=== PATIENT | female | born 1930 | race Caucasian/White ===

== ENCOUNTER 2017-11-09 22:03 | Inpatient (IN) | payer MEDICARE, OTHER ==
[~2017-11-09] VITALS: Ht 172.7 cm; Wt 67.4 kg
[2017-11-10] VITALS (8 sets, daily range): BP systolic 111–167; BP diastolic 61–85
[2017-11-10] MEDS ORDERED: ONDANSETRON 4 MG/2 ML (SDV) Z0FRAN IV PRN ×2 (02:00→14:30)
[2017-11-10] MEDS ORDERED: fentaNYL INJECTION 100 MCG/2 ML AMP IV PRN (02:00)
[2017-11-10] MEDS ORDERED: LORazepam INJ 2 MG/ML (ATIVAN) VIAL IV PRN (02:00)
[2017-11-10] MEDS: D5 1/2 NS 1000 ML IV SOLUTION 1,000 ML IV SCH ×2 (02:41→11:33)
[2017-11-10] MEDS ORDERED: LACTATED RINGERS 1,000 ML IV PRN (10:19)
--- NOTE | 2017-11-10 10:21 | HISTORY AND PHYSICAL ---
DATE OF SERVICE: 11/10/2017 CHIEF COMPLAINT: Pain in right wrist, pain in right hip. HISTORY OF PRESENT ILLNESS: This is an 87-year-old female who has some dementia and fell at home, fracturing the right distal radius and the right hip. She was seen at the emergency room at [place]. Closed reduction of the right wrist was carried out and a cast was applied. X-rays showed a fractured right femoral neck. She has brought with her a disk from [place]. I am unable to open it up. She was transferred to [facility] for treatment of the fractures. She denies any other injuries. Her is in the room with her. She sustained the injury when she fell in a parking lot. PAST MEDICAL HISTORY: Dementia, hyperlipidemia, breast cancer, endometrial cancer. PAST SURGICAL HISTORY: She has had a left hip bipolar arthroplasty and then converted to total hip arthroplasty in the past by Dr. Orantes. FAMILY HISTORY: Noncontributory. SOCIAL HISTORY: Denies smoking or alcohol use. She and her live in [place], [place]. She is retired. ALLERGIES: No known drug allergies. HOME MEDICATIONS: Vitamin C, multivitamin, thyroid supplement. REVIEW OF SYSTEMS: CONSTITUTIONAL: Denies fever, chills. HEENT: Denies visual disturbance or loss of consciousness. CARDIOVASCULAR: Denies chest pain, shortness of breath or palpitations. RESPIRATORY: Denies shortness of breath, cough. GASTROINTESTINAL: Denies nausea, vomiting, diarrhea, constipation. NEUROLOGIC: Denies numbness or tingling or motor weakness. MUSCULOSKELETAL: See HPI. PHYSICAL EXAMINATION: VITAL SIGNS: Temperature 98.7, blood pressure 132/80, pulse 106, respirations 18, oxygen saturation 97%. GENERAL: She is alert and awake, slightly confused. HEENT: Normocephalic, atraumatic. Extraocular movements intact. NECK: Nontender. CHEST: Clear to auscultation. HEART: Regular rate and rhythm with a systolic ejection murmur noted. ABDOMEN: Positive bowel sounds, soft and nontender. No masses. EXTREMITIES: Right hip is tender to palpation but shows no deformity. Right wrist is in a short arm cast. She can move the fingers well, has brisk capillary refill in the fingers of the right hand. NEUROLOGIC: No focal deficits. VASCULAR: Good capillary refill noted. X-RAYS: Valgus impacted right femoral neck fracture. Displaced right distal radius fracture which has been reduced and casted LAB STUDIES: She has copies of lab work that was done at [facility]. A CBC shows white count of 6.2, hemoglobin 12.8, hematocrit 38, platelets 260,000. Protime 11.3, INR 1.1. Comprehensive metabolic panel shows a sodium 133, potassium 4.8, chloride 91, CO2 25, calcium 8.9, BUN 18, creatinine 0.66, glucose 106. The PTT is 27.9. DIAGNOSIS: Right femoral neck fracture, right comminuted distal radius and ulnar fracture. PLAN: We will plan on taking her to the operating room today for surgery on the right hip and right wrist. Due to the impacted minimally displaced femoral neck I will do cannulated screws. On the wrist I will do ORIF. The hospitalist has been consulted. Job ID: [id number] DocumentID: [id number] Dictated Date: 11/10/2017 07:31:04 Child Welfare Counselor Date: 11/10/2017 09:03:10 Dictated By: PIPPA TY MD MTDD
[2017-11-10] MEDS ORDERED: [UNRECOGNIZED DRUG - OTHER] PO (10:31)
[2017-11-10] MEDS ORDERED: CALC600T12 PO (10:31)
--- NOTE | 2017-11-10 12:05 | Occ Therapy Progress Note ---
Therapy Progress Note 1110 OT orders received but patient is going to surgery this afternoon for repair of hip and UE fractures. Will follow. RAYNE PARKS OT Nov 10, 2017 12:05
--- NOTE | 2017-11-10 12:40 | Consultation-Hospitalist ---
HPI History of Present Illness: HPI/Chief Complaint The patient is an 87-year-old white female admitted by Dr. Bridges as a direct transfer from the [place] emergency room. Her states that they had been to the store. He states that she gets about independently at home but generally requires him for ambulation when they are out. She has had advanced Alzheimer's disease for 15-20 years. He is not absolutely clear about the fall as he took packages to the car to unload. She apparently attempted to follow him to the car and he believes she tripped over a concrete parking bumper. She received to evaluation at the [place] emergency room where it was determined that she had a right femoral neck fracture and a fracture of the right distal radius. A fiberglass splint was placed on the wrist. She is also known to have had a previous left bipolar hip replacement later revised to a total hip arthroplasty. Her past history was positive for distant breast and endometrial carcinoma. Her medications are a minimum. Her states that she had previously been on drugs for Alzheimer's disease but she showed no particular improvement and he discontinued them Source: family Date Seen 11/10/17 Attending Physician Gregorio Bridges MD PCP No,Local Physician Referring Physician Date of Admission Nov 10, 2017 at 00:15 Home Medications & Allergies Home Medications Reviewed patient Home Medication Reconciliation performed by pharmacy medication reconciliations security alarm technician and/or nursing. Patients Allergies have been reviewed. Allergies Allergies Coded Allergies No Known Drug Allergies (Unverified11/10/17) Past Uaxwmqg-Vluccp-Hnentg Hx Past Med/Social Hx: Reviewed Nursing Past Med/Soc Hx Patient Social History Marrital Status: Alcohol Use: Denies Use Recreational Drug Use: No Smoking Status: Never a Smoker Physical Abuse Screen: No Sexual Abuse: No Recent Foreign Travel: No Contact w/other who traveled: No Recent Hopitalizations: No Recent Infectious Disease Expo: No Seasonal Allergies Seasonal Allergies: No Past Medical History Musculoskeletal: Arthritis History of Blood Disorders: No Review of Systems ROS-Unable to Obtain: Y Constitutional: see HPI Physical Exam Physical Exam Vital Signs Vital Signs - First Documented 11/10/17 00:10 Temp 98.4 Pulse 107 Resp 16 B/P (MAP) 153/81 (105) Pulse Ox 92 O2 Delivery Nasal Cannula O2 Flow Rate 2.00 Capillary Refill : Less Than 3 SecondsLess Than 3 Seconds General Appearance: No Apparent Distress, WD/WN Eyes: Bilateral Eye Normal Inspection HEENT: Normal ENT Inspection Neck: Full Range of Motion Respiratory: Chest Non Tender, Lungs Clear, Normal Breath Sounds, No Accessory Muscle Use, No Respiratory Distress Cardiovascular: Regular Rate, Rhythm, No Edema, No Gallop, No JVD, No Murmur, Normal Peripheral Pulses Gastrointestinal: Normal Bowel Sounds, No Organomegaly, No Pulsatile Mass, Non Tender Comments The right wrist was encased in a fiberglass splint. Results Results/Procedures Labs Patient resulted labs reviewed. Assessment/Plan Assessment and Plan Assess & Plan/Chief Complaint Impression: Right femoral neck fracture. 2.fracture right distal radius. 3.advanced SDAT Note: Other than age there is no real concern as to proceeding with planned surgery. The hospital service will follow with you postoperatively Clinical Quality Measures DVT/VTE Risk/Contraindication: Risk Factor Score Per Nursin RFS Level Per Nursing on Admit: 4+=Very High MIK PEREIRA MD Nov 10, 2017 12:40
[2017-11-10] MEDS ORDERED: BUPIVACAINE 0.25% 30 ML (SENSORCAINE) VIAL ONE (13:10)
[2017-11-10] MEDS ORDERED: DEXAMETHASONE 10 MG/ML (DECADRON) 1 ML VIAL ONE (13:30)
[2017-11-10] MEDS ORDERED: ONDANSETRON 4 MG/2 ML (SDV) Z0FRAN ONE (13:30)
[2017-11-10] MEDS ORDERED: proPOfol 200 MG/20 ML (DIPRIVAN) VIAL IV ONE (13:30)
[2017-11-10] MEDS ORDERED: fentaNYL INJECTION 100 MCG/2 ML AMP ONE (13:31)
[2017-11-10] MEDS ORDERED: LIDOCAINE PF 2% 5 ML (XYLOCAINE) VIAL ONE (13:31)
[2017-11-10] MEDS ORDERED: ceFAZolin 1,000 MG (ANCEF) VIAL ONE (14:03)
[2017-11-10] MEDS: LACTATED RINGERS 1,000 ML IV SCH (14:05)
[2017-11-10] MEDS ORDERED: MILK OF MAGNESIA 400 MG/5 ML 30 ML UDC PO PRN (14:30)
[2017-11-10] MEDS ORDERED: morphine INJ 4 MG/ML 1 ML (VIAL/SYRINGE) IV PRN (14:30)
[2017-11-10] MEDS ORDERED: BISACODYL 5 MG (DULCOLAX) TABLET PO PRN (14:30)
[2017-11-10] MEDS ORDERED: KETOROLAC 15 MG/ML VIAL IM/IV SCH (14:30)
[2017-11-10] MEDS ORDERED: ACETAMINOPHEN 325 MG TABLET/CAPLET (TYLENOL) PO PRN ×2 (14:30→14:45)
[2017-11-10] MEDS ORDERED: oxyCODONE/APAP 5/325MG (PERCOCET 5) TABLET PO PRN (14:30)
--- NOTE | 2017-11-10 14:32 | Physical Therapy Progress Note ---
Therapy Progress Note Patient currently in surgery. PT to evaluate in KEL Bauer PT Nov 10, 2017 14:32
[2017-11-10] MEDS ORDERED: PHENYLEPHRINE 100 MCG/ML 10 ML (ANESTHESIA) SYR ONE (15:04)
--- NOTE | 2017-11-10 15:22 | Diagnostic Imaging Report ---
INDICATION: Hip pinning. COMPARISON: None. FINDINGS: Two intraoperative image intensifier views of the right hip were obtained during ORIF. Images provided show three partially threaded cannulated screws traversing the right femoral head and neck. No large displaced fracture fragments are identified but evaluation is suboptimal given the fluoroscopic modality. Please note, the interpreting radiologist was not present during the procedure. IMPRESSION: Fluoroscopic guidance was provided during right hip surgery. Dictated by: Dictated on workstation # [id number]
[2017-11-10] MEDS ORDERED: morphine INJ 10 MG/ML 1ML (SYR OR VIAL) ONE (15:49)
[2017-11-10] MEDS ORDERED: SEVOFLURANE (ULTANE) 15 ML INHAL SOLN ONE ×4 (16:07)
[2017-11-10] MEDS ORDERED: meTOprolol 5 MG/5 ML (LOPRESSOR) VIAL ONE ×2 (16:18→17:04)
[2017-11-10] MEDS ORDERED: morphine INJ 10 MG/ML 1ML (SYR OR VIAL) IVP PRN (17:00)
[2017-11-10] MEDS ORDERED: ONDANSETRON 4 MG/2 ML (SDV) Z0FRAN IVP PRN (17:00)
--- NOTE | 2017-11-10 17:26 | Diagnostic Imaging Report ---
INDICATION: Right wrist ORIF. EXAM: Fluoroscopy was provided during a right wrist ORIF. FINDINGS: Three seconds of fluoroscopic time was utilized. Images demonstrate a volar plate and numerous screws transfixing the distal radius fracture. Alignment appears to be anatomic. IMPRESSION: Fluoroscopy for right wrist ORIF. Dictated by: Dictated on workstation # [id number]
[2017-11-10] MEDS: SENNOSIDES 8.6 MG (SENOKOT) TAB PO SCH ×2 (21:40→21:51)
[2017-11-10] MEDS: DOCUSATE SODIUM 100 MG (COLACE) CAP PO SCH ×2 (21:40→21:50)
[2017-11-10] MEDS: ceFAZolin 2 GM IV Premixed 50 ML IV SCH (22:15)
[2017-11-11] VITALS: BP 158/81
[2017-11-11] MEDS: KETOROLAC 15 MG/ML VIAL IM/IV SCH ×2 (00:02→05:27)
[2017-11-11] MEDS: LACTATED RINGERS 1,000 ML IV SCH ×2 (01:22→16:20)
--- NOTE | 2017-11-11 01:32 | OPERATIVE REPORT ---
DATE OF SERVICE: 11/10/2017 PREOPERATIVE DIAGNOSES: Valgus impacted right femoral neck fracture, displaced right distal radius and ulnar fracture with previous malunion of distal radius and ulna and ulnar positive variance. POSTOPERATIVE DIAGNOSES: Valgus impacted right femoral neck fracture, displaced right distal radius and ulnar fracture with previous malunion of distal radius and ulna and ulnar positive variance.. PROCEDURE: Cannulated screw fixation, right hip open reduction internal fixation, right distal radius, right distal ulna excision. SURGEON: Pippa Bridges MD ACCOUNTS PAYABLE COORDINATOR: Jf Velazquez PA-C. ACCOUNTS PAYABLE COORDINATOR SURGEON DUTIES: The patient positioning, retraction, wound closure, application of sterile dressings. Use of pest controller assistant surgeon is medically indicated. ANESTHESIA: General. COMPLICATIONS: None. BLOOD LOSS: 100 mL. SPECIMENS: None. IMPLANTS: Synthes 7.3 mm cannulated screws x3 for the right hip. Right Synthes distal radial locking plate and screws. INDICATIONS: This lady has fallen late last night and was transferred here with a right hip fracture and right distal radius ulnar fracture. She comes to the operating room today for fixation of the fractures. PROCEDURE IN DETAIL: After informed consent, the patient transported to the operating room. She was placed under general anesthetic and positioned supine on the operative table. She was positioned on the fracture table with the pubis against perineal post, the left leg in the leg johnson with the right foot in a traction boot. Slight internal rotation was applied to the right lower extremity. C-arm was brought in and the fracture remained impacted. The right hip was prepped with ChloraPrep and draped in sterile fashion. A lateral incision was made over the right hip distal to the greater trochanter and IT band and vastus lateralis were split and elevated from the femur. The first guide pin that was placed into the superior anterior portion of the femoral neck and head, confirmed on the C-arm in the AP and lateral view. Next, the parallel guide was used to place a second pin superior and posterior and then a third pin at central and inferior along the calcar. Placement was confirmed on the C-arm and I was careful not to penetrate the articular surface. The pins were measured. Lateral cortex was drilled with a cannulated drill bit over the guide pins and then the appropriate length 7.3 mm cannulated screws were placed over the pins obtaining good purchase. The pins were pulled out. Hard copy C-arm images were saved to the PAC system confirming satisfactory placement and no penetration of the joint surface. All the screws were parallel. The wound was thoroughly irrigated. The IT band was closed with interrupted #1 Vicryl for subcutaneous tissues and anat on the skin. A sterile dressing was applied. Next, the drapes were removed. An arm board was placed on the right side of the table. A tourniquet was placed on the right arm. The right upper extremity was then prepped with ChloraPrep and draped in sterile fashion. A volar approach to the distal radius was carried out. The skin was incised longitudinally over the distal radius and the FCR sheath was opened. The FCR tendon was retracted. The deep fascia then was opened and then the pronator quadratus was elevated off of the distal radius. It appeared that she had a malunited distal radius fracture. The ulna was also deformed and she had ulnar positive variance. I reduced the distal radius fracture, but it still maintain some degree of decreased radial inclination due to the prominent distal ulna. The distal ulna also was very comminuted and fractured. An incision was made over the distal ulna and the fragments were dissected out and were too small to do any fixation. It was felt that with ulnar positive variance. She would benefit more from a distal ulna excision. The fragments that were removed flushed with the distal radius with a rongeur without difficulty. The distal radius then could be brought into better reduction and a Synthes plate was placed over the volar aspect of the distal radius with 6 locking screws in the distal fragment obtaining good purchase and three 3.5 mm bicortical screws in the proximal fragment obtaining good purchase on the lateral view. The angulation was anatomic on the AP view. There was still some slight loss of radial angle inclination, but this is greatly improved with the distal ulna excision. The wounds were thoroughly irrigated. Hard copy C-arm images were saved to the PAC system with AP and lateral views confirming satisfactory reduction, satisfactory screw length and no penetration of the joint surface. The wound was thoroughly irrigated. The wounds were closed in layers with 0 Vicryl, 2-0 Vicryl and then 3-0 nylon on the skin. A bulky dressing and a short arm splint were applied. The tourniquet was deflated. She then was transported to the recovery room in stable condition. Job ID: [id number] DocumentID: [id number] Dictated Date: 11/10/2017 16:01:33 Mitigation Supervisor Date: 11/11/2017 01:31:59 Dictated By: PIPPA BRIDGES MD MTDD
[2017-11-11 04:45] VITALS: BP 116/60
[2017-11-11] MEDS: ceFAZolin 2 GM IV Premixed 50 ML IV SCH (05:33)
[2017-11-11 06:00] LABS: HEMOGLOBIN 11.5 G/DL (11.5-16.0)
[2017-11-11 08:00] VITALS: BP 113/58
--- NOTE | 2017-11-11 08:14 | Anesthesia-General Post-Op ---
General Significant Intra-Op Events Notes Pt sleeping, nurse reported no anesthesia complications Patient Condition Mental Status/LOC: Same as Preop Cardiovascular: Satisfactory Nausea/Vomiting: Absent Respiratory: Satisfactory Pain: Controlled Complications: Absent Post Op Complications Complications None Follow Up Care/Instructions Patient Instructions None needed. Anesthesia/Patient Condition Patient Condition Patient is doing well, no complaints, stable vital signs, no apparent adverse anesthesia problems. No complications reported per nursing. D/C home per [facility] Criteria: Yes BARBARA MONZON CRNA Nov 11, 2017 08:14
[2017-11-11] MEDS: DOCUSATE SODIUM 100 MG (COLACE) CAP PO SCH ×2 (09:02→20:18)
[2017-11-11] MEDS: SENNOSIDES 8.6 MG (SENOKOT) TAB PO SCH ×2 (09:02→20:18)
[2017-11-11] MEDS: ENOXAPARIN 30 MG/0.3 ML (LOVENOX) SYR SC SCH ×2 (09:03→20:23)
[2017-11-11] MEDS: HYDROcodone/APAP 5 MG/325 MG (LORTAB) TAB PO PRN ×2 (09:05→15:40)
--- NOTE | 2017-11-11 09:30 | Physical Therapy Evaluation ---
PT Evaluation-General Medical Diagnosis Admission Date Nov 10, 2017 at 00:15 Medical Diagnosis: right KATIE Onset Date: Nov 10, 2017 Therapy Diagnosis Therapy Diagnosis: impaired mobility, strength, endurance, pain, ROM Height/Weight Height (Feet): 5 Height (Inches): 8.00 Weight (Pounds): 148 Weight (Ounces): 9.0 Precautions Precautions/Isolations: Fall Prevention, Standard Precautions Weight Bear Status Right Lower Extremity: Right Weight Bearing/Tolerated Left Lower Extremity: Left Full Weight Bearing can weight bear right arm using platform walker Referral Physician: Gregorio Bridges MD Reason for Referral: Evaluation/Treatment Medical History Pertinent Medical History: Dementia Current History fell in parking lot, fx right femoral neck and right distal radius Reviewed History: Yes Social History Home: Multilevel Current Living Status: Spouse Entry Into Home: Stairs With Railing PT Steps Into Home: 13 Prior/Core FIM Prior Level of Function Functional [place] Measure 0=Not Assessed/NA 4=Minimal Assistance 1=Total Assistance 5=Supervision or Setup 2=Maximal Assistance 6=Modified [place] 3=Moderate Assistance 7=Complete [place] Bed Mobility: 7 Transfers (B,C,W/C) (FIM): 7 Gait: 7 PT Evaluation-Current Subjective Patient in bed pre tx, agrees to PT but is very confused, no pain at rest. Pt/Family Goals none stated Objective Patient Orientation: Person, Confused Attachments: Oxygen, IV 5L of O2 nasal canula ROM/Strength ROM Lower Extremities NT Strength Lower Extremities NT due to recent surgery Neuromuscular (Tone, Coordination, Reflexes) NT Sensory Vision: Functional Hearing: Impaired Sensation Right Lower Extremit: Intact Sensation Left Lower Extremity: Intact Sensation Lower Extremities Patient very hard of hearing Transfers Functional [place] Measure 0=Not Assessed/NA 4=Minimal Assistance 1=Total Assistance 5=Supervision or Setup 2=Maximal Assistance 6=Modified [place] 3=Moderate Assistance 7=Complete [place] Transfers (B, C, W/C) (FIM): 3 Scootin Rollin Supine to/from Sit: 3 Sit to/from Stand: 3 bed t/f WC(FIM only if WC use): 2 Patient was able to sit at the edge of the bed with mod assist and stand with mod assist. She could not take any steps because she could not bear any weight on her right leg due to pain. She had to sit back down and a stand pivot transfer was performed to the recliner. Balance Sitting Static: Fair Sitting Dynamic: Fair Standing Static: Poor Standing Dynamic: Poor Treatment Seated exercises were attempted, she was able to perform APx10 but only about 4 LAQ. Confusion impaired her ability to perform exercises and follow directions. Assessment/Needs Patient has impaired mobility, strength, endurance, balance, ROM. Patient is confused and at risk for a fall. She was placed in a recliner post tx with nurse call, phone, tray, all needs met. in the room. Rehab Potential: Guarded PT Short Term Goals Short Term Goals Time Frame: November 18, 2017 Transfers (B,C,W/C) (FIM): 4 Gait (FIM): 1 Gait Distance Comment: 20' Gait Level of Assist: 4 Gait Assistive Device: FWW PT Plan Problem List Problem List: Activity Tolerance, Functional Strength, Safety, Balance, Gait, Transfer, Bed Mobility, ROM Treatment/Plan Treatment Plan: Continue Plan of Care Treatment Plan: Bed Mobility, Education, Functional Activity Hieu, Functional Strength, Gait, Safety, Therapeutic Exercise, Transfers Treatment Duration: November 18, 2017 Frequency: 11 times per week Estimated Hrs Per Day: .25 hour per day (15-30') Patient and/or Family Agrees t: Yes Safety Risks/Education Patient Education: Gait Training, Transfer Techniques, Reviewed Precautions, Correct Positioning, Disease Process, Safety Issues Teaching Recipient: Patient Teaching Methods: Discussion Response to Teaching: Reinforcement Needed Discharge Recommendations Plan Patient will perform bed mobility and transfer training, balance and endurance training, functional strengthening, stair training, gait training, and education , to improve functional mobility and independence at home. Therapy D/C Recommendations: Home w/ Family Support, Senior Living (TCU/NH) Time/GCodes Time In: 0900 Time Out: 919 Total Billed Treatment Time: 20 Total Billed Treatment 1 visit [facility] 20' JOYA EDWARDS PT Nov 11, 2017 09:30
--- NOTE | 2017-11-11 11:37 | Progress Note-Hospitalist ---
Subjective HPI/CC On Admission Date Seen by Provider: Nov 11, 2017 Time Seen by Provider: 11:15 The patient is an 87-year-old white female admitted by Dr. Bridges as a direct transfer from the [place] emergency room. Her states that they had been to the store. He states that she gets about independently at home but generally requires him for ambulation when they are out. She has had advanced Alzheimer's disease for 15-20 years. He is not absolutely clear about the fall as he took packages to the car to unload. She apparently attempted to follow him to the car and he believes she tripped over a concrete parking bumper. She received to evaluation at the [place] emergency room where it was determined that she had a right femoral neck fracture and a fracture of the right distal radius. A fiberglass splint was placed on the wrist. She is also known to have had a previous left bipolar hip replacement later revised to a total hip arthroplasty. Her past history was positive for distant breast and endometrial carcinoma. Her medications are a minimum. Her states that she had previously been on drugs for Alzheimer's disease but she showed no particular improvement and he discontinued them Subjective/Events-last exam Patient doing well but only walk 2 feet Lives with her of 67 years but he reports that he cannot take her home if she is just walking that small amount I have put social work consult in for placement that will be ready for Thursday disposition Is eating and drinking it appears to have underlying dementia that would preclude her for criteria of inpatient rehabilitation Considering her advanced age I doubt that recovery back to baseline will be possible that we'll initiate therapy and continue treatment plan No bowel movement yet but on meds Review of Systems General: Fatigue, Malaise Musculoskeletal: leg pain Objective Exam Vital Signs Vital Signs Date Time Temp Pulse Resp B/P (MAP) Pulse Ox O2 Delivery O2 Flow Rate FiO2 11/11/17 11:57 98.5 77 18 88/46 (60) 93 Nasal Cannula 5.00 Capillary Refill : Less Than 3 SecondsLess Than 3 Seconds General Appearance: No Apparent Distress, WD/WN, Chronically ill, Other ( confused?) HEENT: Normal ENT Inspection Neck: Full Range of Motion, Normal Inspection, Non Tender, Supple Respiratory: Lungs Clear, Normal Breath Sounds Cardiovascular: Regular Rate, Rhythm, No Edema Back: Normal Inspection, No CVA Tenderness, No Vertebral Tenderness Extremity: Normal Capillary Refill, Normal Inspection, Normal Range of Motion, Non Tender, No Calf Tenderness Neurologic/Psychiatric: Alert, Disoriented Skin: Normal Color, Warm/Dry Lymphatic: No Adenopathy Results/Procedures Lab Laboratory Tests 11/11/17 05:37 Patient resulted labs reviewed. Assessment/Plan Assessment and Plan Assess & Plan/Chief Complaint Right hip fracture POD # 1 Dementia Hypothyroidism Plan: Check labs in a.m. Physical therapy Needs custodial at discharge on Thursday Diagnosis/Problems Diagnosis/Problems (1) Hypothyroidism Status: Chronic Qualifiers: Hypothyroidism type: acquired Qualified Codes: E03.9 - Hypothyroidism, unspecified (2) Dementia Status: Chronic Qualifiers: Dementia type: Alzheimer's disease Alzheimer's disease onset: unspecified onset Dementia behavioral disturbance: without behavioral disturbance Qualified Codes: G30.9 - Alzheimer's disease, unspecified; F02.80 - Dementia in other diseases classified elsewhere without behavioral disturbance (3) Hip fracture, right Status: Acute Qualifiers: Encounter type: initial encounter Fracture type: closed Qualified Codes: S72.001A - Fracture of unspecified part of neck of right femur, initial encounter for closed fracture Clinical Quality Measures DVT/VTE Risk/Contraindication: Risk Factor Score Per Nursin RFS Level Per Nursing on Admit: 4+=Very High MILLIE MONTOYA DO Nov 11, 2017 11:37
[2017-11-11 11:57] VITALS: BP 88/46
--- NOTE | 2017-11-11 12:18 | Progress Note (SOAP) ---
Subjective Date Seen by Provider: Nov 11, 2017 Time Seen by Provider: 12:15 Subjective/Events-last exam POD 1 s/p right hip perc pinning and ORIF R wrist. Currently in chair at bedside. She verbalizes no complaints. at bedside as well. Focused Exam Respiratory: No Accessory Muscle Use Cardiovascular: Normal Peripheral Pulses Skin: warm/dry, other (dressing to right hip and right wrist CDI) Objective Exam Vital Signs Date Time Temp Pulse Resp B/P (MAP) Pulse Ox O2 Delivery O2 Flow Rate FiO2 11/11/17 11:57 98.5 77 18 88/46 (60) 93 Nasal Cannula 5.00 11/11/17 09:45 97 Nasal Cannula 5.00 11/11/17 08:00 98.2 90 20 113/58 (76) 94 Nasal Cannula 5.00 11/11/17 04:45 99.2 80 19 116/60 (78) 96 Nasal Cannula 5.00 11/11/17 00:00 97.5 81 20 158/81 (106) 96 Nasal Cannula 5.00 11/10/17 22:00 Nasal Cannula 3.00 11/10/17 20:05 98.1 79 18 167/85 (112) 98 Nasal Cannula 5.00 11/10/17 18:55 Nasal Cannula 5.00 11/10/17 17:28 97.4 84 16 149/73 (98) 90 Nasal Cannula 5.00 I & O 11/11/17 07:00 Intake Total 3538 ml Output Total 710 ml Balance 2828 ml Capillary Refill : Less Than 3 SecondsLess Than 3 Seconds General Appearance: No Apparent Distress Neurologic/Psychiatric: Alert Results Lab Laboratory Tests 11/11/17 05:37: Hemoglobin 11.5, Hematocrit 33L Assessment/Plan Assessment/Plan Assess & Plan/Chief Complaint A: POD 1 s/p ORIF right wrist and perc pinning right hip femoral neck fracture right hip displaced comminuted distal radius and ulna fractures right wrist P: continue current treatment. Clinical Quality Measures DVT/VTE Risk/Contraindication: Risk Factor Score Per Nursin RFS Level Per Nursing on Admit: 4+=Very High DWIGHT WIGGINS APRN Nov 11, 2017 12:18 pm
--- NOTE | 2017-11-11 14:57 | Occupational Therapy Eval ---
OT Evaluation-General/PLF Medical Diagnosis Admission Date Nov 10, 2017 at 00:15 Medical Diagnosis: R hip fx, R radius and ulna fx Onset Date: Nov 10, 2017 Therapy Diagnosis Therapy Diagnosis: dec self care, decr funct mob, decr funct use R hand, decr safety aware Height/Weight Height (Feet): 5 Height (Inches): 8.00 Weight (Pounds): 148 Weight (Ounces): 9.0 Precautions Precautions/Isolations: Fall Prevention, Standard Precautions Safety Interventions: Bed Exit Alarm Weight Bear Status Weight Bearing Restriction: Weight Bearing/Tolerated Location Restriction: R LE OK to use platform walker Referral Physician: Gregorio Bridges MD Referral Reason: Evaluation/Treatment Medical History Pertinent Medical History: Arthritis, Dementia Additional Medical History Breast and endometrial cancer. 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 Current History Fell and broke R hip and R radius/ulna. ORIF R hip and R distal radius and ulna resection on 11-10-17. WBAT. Social History Home: Multilevel Current Living Status: Spouse Entry Into Home: Stairs With Railing Steps Into Home: 13 ADL-Prior Level of Function ADL PLOF Comments Patient's has been her primary caregiver, with dementia for 15-20 years. She is able to generally dress herself but needed initiation cues. She could feed herself with a little setup and brush teeth/comb hair. She was generally able to get herself to the bathroom during the day time but was often incontinent several times at night. She refused to wear a "diaper" but did recently tolerate a pad. She resisted taking a shower, with a goal of doing it once a week. She did not need a device for walking in the home. She likes to do word search puzzles OT Current Status Subjective Pt seen in room, up in recliner, agreeable to OT. present and provided most history. No pain behaviors observed. Appearance Pleasant. very hard of hearing. Able to give name and general birthday information "I was born the end of [birth year]". Mental Status/Objective Patient Orientation: Person Attachments: IV Current Glasses/Contacts: Yes Hand Dominance: Right Upper Extremity ROM Unable to fully assess. AROM R hand limited by splint and edema but by end of tx she was able to flex fingers to touch edges of cast and oppose thumb to little finger Upper Extremity Coordination Impaired R hand Upper Extremity Strength Unable to assess. Functional Edema: Fingers R hand ADL-Treatment ADL-Current Pt's diet had just been advanced. reported that he fed her breakfast and lunch but will encourage her to feed herself this evening. Different types of finger foods suggested. She required mod assist bed mobility this am with PT and mod assist sit to stand. She was unable to bear weight on R LE. Discussed with to bring in some comfortable clothes to use for ADL practice Functional [place] Measure 0=Not Assessed/NA 4=Minimal Assistance 1=Total Assistance 5=Supervision or Setup 2=Maximal Assistance 6=Modified [place] 3=Moderate Assistance 7=Complete IndependenceIRFPAI Quality Coding Scale 6 Independent with activity with or without an assistive device 5 Patient requires set up or clean up by helper. Patient completes activity by themselves 4 Supervision or touching assist (CGA). [place] provide cues , steadying assist 3 The helper provides less than half the effort to complete the activity 2 The helper provides more than half the effort to complete the activity 1 Dependent. The helper does all the effort to complete an activity 7 Patient refused to complete or attempt activity 9 The patient did not perform the activity before the current illness or injury 88 Not attempted due to Medical conditions or safety concerns Other Treatments Pt and education on exercises to increase R hand use. She was able to follow visual cues for making a fist with both hands. She also could follow visual instructions for touching thumb to fingertips, including little finger. Pt provided with pink foam pick up which she was able to squeeze with bilat hands. Discussion with about elevation and exercise to help decrease edema, with his verbal understanding. R hand elevated on pillow while pt up in recliner. Pt was able to grasp a pen and was doing puzzles at end of tx. All needs met. Education OT Patient Education: Exercise program, Purpose of tx/functional activities, Rehab process Teaching Recipient: Patient, Family Teaching Methods: Demonstration, Discussion Response to Teaching: Verbalize Understanding, Return Demonstration, Reinforcement Needed OT Halfway Goals Rate Engineer Goals Time Frame: November 18, 2017 Eating (FIM): 5 Grooming(FIM): 5 Bathing(FIM): 4 Upper Body Dressing(FIM): 5 Lower Body Dressing(FIM): 4 Toileting(FIM): 3 Toilet/Commode Transfer(FIM): 4 Shower Transfer(FIM): 4 Additional Goals: 1-Demonstrate ADL Tasks, 2-Verbalize Understanding, 3- ImproveStrength/Hieu 1=Demonstrate adherence to instructed precautions during ADL tasks. 2=Patient will verbalize/demonstrate understanding of assistive devices/ modifications for ADL. 3=Patient will improve strength/tolerance for activity to enable patient to perform ADL's. OT Education/Plan Problem List/Assessment Assessment: Decreased Safety Aware, Dependent Transfers, Edema (R hand), Impaired Cognition, Impaired Coordination, Impaired Self-Care Skills, Restricted Funct UE ROM (R) Pt would benefit from skilled OT to increase her independence in basic self care , which is limited by decreased weight bearing R LE and decreased functional use R hand after surgery. Discharge Recommendations Plan/Recommendations: Continue POC Therapy D/C Recommendations: Snf (TCU/NH) (OT) Patient/Family Goals was hoping to take her home tomorrow based on her rapid recovery from total hip surgery many years ago Treatment Plan/Plan of Care Treatment,Training & Education: Yes Patient would benefit from OT for education, treatment and training to promote independence in ADL's, mobility, safety and/or upper extremity function for ADL' s. Plan of Care: ADL Retraining, Caregiver Training, Functional Mobility, UE Funct Exercise/Act, UE Neuromus Re-Ed/Coord Treatment Duration: November 18, 2017 Frequency: 5 times per week Estimated Hrs Per Day: .25 hour per day (to .5) Agreement: Yes Rehab Potential: Poor Time/GCodes Start Time: 13:55 Stop Time: 14:30 Total Time Billed (hr/min): 35 Billed Treatment Time visit, 20 minutes evaluation high intensity, 15 minutes exercise RAYNE PARKS OT Nov 11, 2017 14:57
[2017-11-11 15:40] VITALS: BP 116/60
--- NOTE | 2017-11-11 15:50 | Physical Therapy Daily Note ---
PT Daily Note-Current Subjective Patient in recliner pre tx, reluctant to participate but does with therapist and family encouragement. Pain not rated. Appearance Patient in bed post tx with nurse call, phone, tray, bed alarm on. Patient would not let therapist put on her nasal canula, nurse notified. Mental Status Patient Orientation: Person Transfers Functional [place] Measure 0=Not Assessed/NA 4=Minimal Assistance 1=Total Assistance 5=Supervision or Setup 2=Maximal Assistance 6=Modified [place] 3=Moderate Assistance 7=Complete IndependenceIRFPAI Quality Coding Scale 6 Independent with activity with or without an assistive device 5 Patient requires set up or clean up by helper. Patient completes activity by themselves 4 Supervision or touching assist (CGA). [place] provide cues , steadying assist 3 The helper provides less than half the effort to complete the activity 2 The helper provides more than half the effort to complete the activity 1 Dependent. The helper does all the effort to complete an activity 7 Patient refused to complete or attempt activity 9 The patient did not perform the activity before the current illness or injury 88 Not attempted due to Medical conditions or safety concerns Transfers (B, C, W/C) (FIM): 2 Scootin Rollin Supine to/from Sit: 2 Sit to/from Stand: 2 Bed to/from Chair: 2 Patient was max assist for bed mobility and transfers. Patient could not stand with the walker in front of her and a therapist has to supervisor production managing front of her and help her stand with max assist and she took a few steps back to the bed with max cues. Weight Bearing Right Lower Extremity: Right Weight Bearing/Tolerated Left Lower Extremity: Left Full Weight Bearing can weight bear right arm using platform walker Exercises Seated Therapy Exercises: Long arc quads Seated Reps: 10 Treatments bed mobility and transfers, functional strengthening Assessment Current Status: Poor Progress poor mobility, poor motivation PT Short Term Goals Short Term Goals Time Frame: November 18, 2017 Gait (FIM): 1 Gait Distance Comment: 20' Gait Level of Assist: 4 Gait Assistive Device: FWW PT Plan Problem List Problem List: Activity Tolerance, Functional Strength, Safety, Balance, Gait, Transfer, Bed Mobility, ROM Treatment/Plan Treatment Plan: Continue Plan of Care Treatment Plan: Bed Mobility, Education, Functional Activity Hieu, Functional Strength, Gait, Safety, Therapeutic Exercise, Transfers Treatment Duration: November 18, 2017 Frequency: 11 times per week Estimated Hrs Per Day: .25 hour per day (15-30') Patient and/or Family Agrees t: Yes Safety Risks/Education Patient Education: Transfer Techniques, Correct Positioning, Safety Issues Teaching Recipient: Patient Teaching Methods: Demonstration, Discussion Response to Teaching: Reinforcement Needed Time/GCodes Time In: 1525 Time Out: 1535 Total Billed Treatment Time: 10 Total Billed Treatment 1 visit FA 10' JOYA EDWARDS PT Nov 11, 2017 15:50
[2017-11-11 19:15] VITALS: BP 116/73
[2017-11-12] VITALS: BP 118/54
[2017-11-12] MEDS: HYDROcodone/APAP 5 MG/325 MG (LORTAB) TAB PO PRN ×3 (00:17→21:35)
[2017-11-12 04:00] VITALS: BP 96/63
[2017-11-12 05:56] LABS: BASOPHILS % (AUTO) 0 % (0-10); EOSINOPHILS # (AUTO) 0.1 10^3/uL (0.0-0.3); EOSINOPHILS % (AUTO) 3 % (0-10); HEMATOCRIT 33 % (35-52); HEMOGLOBIN 11.3 G/DL (11.5-16.0); LYMPHOCYTES # (AUTO) 0.7 X 10^3 (1.0-4.0); LYMPHOCYTES % (AUTO) 14 % (12-44); MEAN CORPUSCULAR HEMOGLOBIN 34 PG (25-34); MEAN CORPUSCULAR HGB CONC 34 G/DL (32-36); MEAN CORPUSCULAR VOLUME 101 FL (80-99); MONOCYTES # (AUTO) 0.6 X 10^3 (0.0-1.0); MONOCYTES % (AUTO) 12 % (0-12); NEUTROPHILS # (AUTO) 3.5 X 10^3 (1.8-7.8); NEUTROPHILS % (AUTO) 72 % (42-75); PLATELET COUNT 194 10^3/uL (130-400); RED BLOOD COUNT 3.32 10^6/uL (4.35-5.85); RED CELL DISTRIBUTION WIDTH 14.9 % (10.0-14.5); WHITE BLOOD COUNT 4.9 10^3/uL (4.3-11.0)
[2017-11-12 06:15] LABS: ALANINE AMINOTRANSFERASE 11 U/L (0-55); ALBUMIN 3.1 GM/DL (3.2-4.5); ALKALINE PHOSPHATASE 48 U/L (40-136); BILIRUBIN,TOTAL 0.9 MG/DL (0.1-1.0); BUN/CREATININE RATIO 24; CALCIUM 8.2 MG/DL (8.5-10.1); CARBON DIOXIDE 26 MMOL/L (21-32); CHLORIDE 105 MMOL/L (98-107); CREATININE SERUM 0.66 MG/DL (0.60-1.30); GFR ESTIMATED > 60; GLUCOSE 97 MG/DL (70-105); POTASSIUM 3.5 MMOL/L (3.6-5.0); SODIUM 137 MMOL/L (135-145); TOTAL PROTEIN 5.5 GM/DL (6.4-8.2)
[2017-11-12] MEDS: LACTATED RINGERS 1,000 ML IV SCH ×2 (06:32→16:46)
--- NOTE | 2017-11-12 07:50 | Physician Query Clarification ---
PQ-Intro New Diagnosis Admission/Discharge Admission Date: Nov 10, 2017 at 00:15 Discharge Date: Nov 15, 2017 (tentative) The medical record reflects the following clinical scenario: History/Risk Factors: Fall in parking lot Osteoporosis listed on records from [facility] Clinical Findings: Valgus impacted right femoral neck fracture Displaced right distal radius and ulna fractures with previous malunion of distal radius and ulna and ulnar positive variance. Treatment: Surgical treatment Question: What condition best reflects the above clinical scenario? Please document below. 1. Osteoporosis is documented on records from [facility]. Pathological fractures due to osteoporosis. 2. Traumatic fractures of right femoral neck and right distal radius and ulna. 3. Other, with explanation of the clinical findings. 4. Clinically undetermined, no explanation for the clinical findings. PHYSICIAN RESPONSE What condition reflects above: 2 In responding to this query, please exercise your independent professional judgment. The purpose of this communication is to more accurately reflect the complexity of your patients condition. The fact that a question is asked does not imply that any particular answer is desired or expected. Thank you for your timely response to this clarification. Requestors name: Leola Lizama [facility] [place] Phone # ext [phone] or [phone] THIS PHYSICIAN QUERY FORM IS A PERMANENT PART OF THE MEDICAL RECORD LEOLA LIZAMA Nov 12, 2017 07:50 PIPPA TY MD Nov 12, 2017 11:21
[2017-11-12] MEDS: SENNOSIDES 8.6 MG (SENOKOT) TAB PO SCH ×2 (07:56→21:35)
[2017-11-12] MEDS: DOCUSATE SODIUM 100 MG (COLACE) CAP PO SCH ×2 (07:56→21:35)
[2017-11-12] MEDS: ENOXAPARIN 30 MG/0.3 ML (LOVENOX) SYR SC SCH ×2 (07:56→21:35)
--- NOTE | 2017-11-12 07:57 | Physician Query Clarification ---
PQ-Further Specificity Admission/Discharge Admission Date: Nov 10, 2017 at 00:15 Discharge Date: Nov 15, 2017 (tentative) The medical record reflects the following clinical scenario: History/Risk Factors: Fall in parking lot Clinical Findings: Valgus impacted right femoral neck fracture Treatment: Percutaneous pinning Question: Can you further specify Right femoral neck fracture treatment per the clinical indicators above? Please document below. 1. Reduction of displaced femoral neck fracture with percutaneous pinning. 2. Percutaneous pinning of nondisplaced femoral neck fracture. 3. Other, with explanation of the clinical findings. 4. Clinically undetermined, no explanation for the clinical findings. PHYSICIAN RESPONSE Can you specify per above: 2 In responding to this query, please exercise your independent professional judgment. The purpose of this communication is to more accurately reflect the complexity of your patients condition. The fact that a question is asked does not imply that any particular answer is desired or expected. Thank you for your timely response to this clarification. Requestors name: Leola Lizama [facility] Phone # ext [phone] or [phone] THIS PHYSICIAN QUERY FORM IS A PERMANENT PART OF THE MEDICAL RECORD LEOLA LIZAMA Nov 12, 2017 07:57 PIPPA TY MD Nov 12, 2017 11:19
[2017-11-12 08:00] VITALS: BP 138/84
[2017-11-12] MEDS ORDERED: BISACODYL 10 MG SUPP (DULCOLAX) PR NR (10:15)
--- NOTE | 2017-11-12 10:34 | Progress Note-Hospitalist ---
Subjective HPI/CC On Admission Date Seen by Provider: Nov 12, 2017 Time Seen by Provider: 09:40 The patient is an 87-year-old white female admitted by Dr. Bridges as a direct transfer from the [facility] emergency room. Her states that they had been to the store. He states that she gets about independently at home but generally requires him for ambulation when they are out. She has had advanced Alzheimer's disease for 15-20 years. He is not absolutely clear about the fall as he took packages to the car to unload. She apparently attempted to follow him to the car and he believes she tripped over a concrete parking bumper. She received to evaluation at the [facility] emergency room where it was determined that she had a right femoral neck fracture and a fracture of the right distal radius. A fiberglass splint was placed on the wrist. She is also known to have had a previous left bipolar hip replacement later revised to a total hip arthroplasty. Her past history was positive for distant breast and endometrial carcinoma. Her medications are a minimum. Her states that she had previously been on drugs for Alzheimer's disease but she showed no particular improvement and he discontinued them Subjective/Events-last exam Patient doing about the same but very hard of hearing and dementia precludes details at the bedside supportive of nursing facility at discharge for skilled care I spoke with primary care provider Dr. Fournier and he is updated on the plan Likely disposition for tomorrow Labs reviewed No BM so we'll start aggressive treatment for that today Review of Systems General: Fatigue Gastrointestinal: Constipation Objective Exam Vital Signs Vital Signs Date Time Temp Pulse Resp B/P (MAP) Pulse Ox O2 Delivery O2 Flow Rate FiO2 11/12/17 08:00 99.3 91 22 138/84 (102) 90 Nasal Cannula 5.00 Capillary Refill : Less Than 3 SecondsLess Than 3 Seconds General Appearance: No Apparent Distress, WD/WN, Chronically ill Respiratory: Lungs Clear, Normal Breath Sounds Cardiovascular: Regular Rate, Rhythm, No Edema Extremity: Normal Capillary Refill, Normal Inspection, Non Tender, No Calf Tenderness Neurologic/Psychiatric: Alert, Disoriented Skin: Normal Color, Warm/Dry Lymphatic: No Adenopathy Results/Procedures Lab Laboratory Tests 11/12/17 05:42 Patient resulted labs reviewed. Assessment/Plan Assessment and Plan Assess & Plan/Chief Complaint Right hip fracture POD # 2 Dementia Hypothyroidism Constipation Plan: Physical therapy Needs halfway at discharge on Thursday Diagnosis/Problems Diagnosis/Problems (1) Hypothyroidism Status: Chronic Qualifiers: Hypothyroidism type: acquired Qualified Codes: E03.9 - Hypothyroidism, unspecified (2) Dementia Status: Chronic Qualifiers: Dementia type: Alzheimer's disease Alzheimer's disease onset: unspecified onset Dementia behavioral disturbance: without behavioral disturbance Qualified Codes: G30.9 - Alzheimer's disease, unspecified; F02.80 - Dementia in other diseases classified elsewhere without behavioral disturbance (3) Hip fracture, right Status: Acute Qualifiers: Encounter type: initial encounter Fracture type: closed Qualified Codes: S72.001A - Fracture of unspecified part of neck of right femur, initial encounter for closed fracture (4) Constipation Status: Acute Qualifiers: Constipation type: drug induced constipation Qualified Codes: K59.03 - Drug induced constipation Clinical Quality Measures DVT/VTE Risk/Contraindication: Risk Factor Score Per Nursin RFS Level Per Nursing on Admit: 4+=Very High MILLIE MONTOYA DO Nov 12, 2017 10:34
--- NOTE | 2017-11-12 10:59 | Physical Therapy Daily Note ---
PT Daily Note-Current Subjective Patient is up in recliner. Adamantly declined standing activity. Agrees to exercises. Pain Numeric Pain Scale: 5-Moderate Pain Location: Right Location Body Site: Hip Pain Description: Acute Mental Status Patient Orientation: Confused Attachments: Oxygen, IV Transfers Functional [place] Measure 0=Not Assessed/NA 4=Minimal Assistance 1=Total Assistance 5=Supervision or Setup 2=Maximal Assistance 6=Modified [place] 3=Moderate Assistance 7=Complete IndependenceIRFPAI Quality Coding Scale 6 Independent with activity with or without an assistive device 5 Patient requires set up or clean up by helper. Patient completes activity by themselves 4 Supervision or touching assist (CGA). [place] provide cues , steadying assist 3 The helper provides less than half the effort to complete the activity 2 The helper provides more than half the effort to complete the activity 1 Dependent. The helper does all the effort to complete an activity 7 Patient refused to complete or attempt activity 9 The patient did not perform the activity before the current illness or injury 88 Not attempted due to Medical conditions or safety concerns Transfers (B, C, W/C) (FIM): 1 Scootin PT repositioned patient in recliner dependent assist with patient refusing to assist Weight Bearing Right Lower Extremity: Right Weight Bearing/Tolerated Left Lower Extremity: Left Full Weight Bearing can weight bear right arm using platform walker Exercises Seated Therapy Exercises: Ankle pumps, Long arc quads Seated Reps: 25 (AAROM) Assessment Patient requires much encouragement to actively participate with therapy. Difficulty with communication secondary to dementia and [place]. From a PT standpoint, patient would benefit from LTCF for continued care. PT Short Term Goals Short Term Goals Time Frame: November 18, 2017 Gait (FIM): 1 Gait Distance Comment: 20' Gait Level of Assist: 4 Gait Assistive Device: FWW PT Plan Treatment/Plan Treatment Plan: Continue Plan of Care Treatment Plan: Bed Mobility, Education, Functional Activity Hieu, Functional Strength, Gait, Safety, Therapeutic Exercise, Transfers Treatment Duration: November 18, 2017 Frequency: 11 times per week Estimated Hrs Per Day: .25 hour per day (15-30') Patient and/or Family Agrees t: Yes Time/GCodes Time In: 944 Time Out: 958 Total Billed Treatment Time: 14 Total Billed Treatment 1 visit EX 14 min KEL LANDRY PT Nov 12, 2017 10:59
[2017-11-12 12:00] VITALS: BP 108/63
--- NOTE | 2017-11-12 12:40 | Progress Note (SOAP) ---
Subjective Date Seen by Provider: Nov 12, 2017 Time Seen by Provider: 12:38 Subjective/Events-last exam Postop day 2 ORIF right hip and ORIF right wrist Slow to progress with PT. Supposed to go to [facility] in [place] tomorrow Review of Systems General: No Chills, No Night Sweats, No Fatigue, No Malaise HEENT: No Head Aches, No Eye Pain, No Ear Pain, No Dysphasia, No Sinus Congestion, No Post Nasal Drip, No Sore Throat Pulmonary: No Dyspnea, No Cough, No Pleuritic Chest Pain Cardiovascular: No: Chest Pain, Palpitations, Orthopnea, Paroxysmal Noc. Dyspnea, Edema, Lt Headedness Gastrointestinal: No: Nausea, Vomiting, Abdominal Pain, Diarrhea, Constipation , Melena, Hematochezia Genitourinary: No Dysuria, No Frequency, No Incontinence, No Hematuria, No Retention Musculoskeletal: No: other, neck pain, shoulder pain, arm pain, back pain, hand pain, leg pain, foot pain Neurological: No: Weakness, Numbness, Incoordination, Change in speech, Confusion, Seizures, Other Objective Exam Vital Signs Date Time Temp Pulse Resp B/P (MAP) Pulse Ox O2 Delivery O2 Flow Rate FiO2 11/12/17 08:00 99.3 91 22 138/84 (102) 90 Nasal Cannula 5.00 11/12/17 08:00 Nasal Cannula 3.00 11/12/17 04:00 99.2 97 19 96/63 (74) 92 Nasal Cannula 3.00 11/12/17 00:00 99.3 89 18 118/54 (75) 93 Nasal Cannula 3.00 11/11/17 21:30 Nasal Cannula 3.00 11/11/17 19:15 99.2 90 18 116/73 (87) 97 Nasal Cannula 5.00 11/11/17 15:40 99.6 86 18 116/60 (78) 98 Nasal Cannula 5.00 I & O 11/12/17 07:00 Intake Total 2620 ml Output Total 300 ml Balance 2320 ml Capillary Refill : Less Than 3 SecondsLess Than 3 Seconds General Appearance: No Apparent Distress Extremity: Normal Capillary Refill, No Calf Tenderness (Scant bloody drainage from right hip and right wrist. Incisions intact) Neurologic/Psychiatric: Alert, No Motor/Sensory Deficits, Disoriented Skin: Normal Color, Warm/Dry Results Lab Laboratory Tests 11/12/17 05:42: White Blood Count 4.9, Red Blood Count 3.32L, Hemoglobin 11.3L, Hematocrit 33L, Mean Corpuscular Volume 101H, Mean Corpuscular Hemoglobin 34, Mean Corpuscular Hemoglobin Concent 34, Red Cell Distribution Width 14.9H, Platelet Count 194, Mean Platelet Volume 10.0, Neutrophils (%) (Auto) 72, Lymphocytes (%) (Auto) 14 , Monocytes (%) (Auto) 12, Eosinophils (%) (Auto) 3, Basophils (%) (Auto) 0, Neutrophils # (Auto) 3.5, Lymphocytes # (Auto) 0.7L, Monocytes # (Auto) 0.6, Eosinophils # (Auto) 0.1, Basophils # (Auto) 0.0, Sodium Level 137, Potassium Level 3.5L, Chloride Level 105, Carbon Dioxide Level 26, Anion Gap 6, Blood Urea Nitrogen 16, Creatinine 0.66, Estimat Glomerular Filtration Rate > 60, BUN/ Creatinine Ratio 24, Glucose Level 97, Calcium Level 8.2L, Total Bilirubin 0.9, Aspartate Amino Transf (AST/SGOT) 22, Alanine Aminotransferase (ALT/SGPT) 11, Alkaline Phosphatase 48, Total Protein 5.5L, Albumin 3.1L Microbiology 11/10/17 MRSA Screen - Final, Complete MRSA not isolated Assessment/Plan Assessment/Plan Assess & Plan/Chief Complaint Postop ORIF of right femoral neck fracture and ORIF right distal radius fracture -- Continue PT. DC to skilled tomorrow Clinical Quality Measures DVT/VTE Risk/Contraindication: Risk Factor Score Per Nursin RFS Level Per Nursing on Admit: 4+=Very High PIPPA TY MD Nov 12, 2017 12:40
--- NOTE | 2017-11-12 12:45 | Discharge Inst-Surgical ---
Discharge Inst-Surgical Depart Medication/Instructions New, Converted or Re-Newed RX: RX on Chart Final Diagnosis: right femoral neck and distal radius fx Consults/Follow Up Goal/Follow Up Appt.: Follow up with Dr. Bridges in 1 month [facility] ESTIVEN Ruiz [phone] Patient Instructions: Weight bear as tolerated right hip. Weight bear with platform walker on right elbow. Daily dressing changes to right hip and right wrist. Keep splint on the right wrist and replace with dressing changes [place] on right hip and sutures right wrist to be removed in [place] on 11-20-2017 Activity Activity as Tolerated: No No heavy lifting right hand Walking Assistive Device: Walker (with platform for right side) Activity Instructions: Avoid Pulling & Pushing Elevate Extremity: Elevate Above Heart (right hand) Diet Discharge Diet: No Restrictions Diet After 24 Hours: Clear Liquid if Nauseous Symptoms to Report to Physicia: Appetite Changes, Extremity Discoloration, Numbness/Tingling, Swelling Increased, Bleeding Excessive, Pain Increased, Fever Over 101 Degrees F If Any Problems/Questions/Issu: Go to Emergency Room Skin/Wound Care Infection Signs and Symptoms: Increased Redness, Foul Odor of Wound, Increased Drainage, Skin Itchy or Has a Rash, Increased Swelling, Temperature Above 101 F Bathing Instructions: Sponge Operative Area Clean and Dry: Keep Incision Clean/Dry Stitches/Nunu/Dermabond Dis: Care of N[place]u, Care of Stitches PIPPA BRIDGES MD Nov 12, 2017 12:45
[2017-11-12] MEDS ORDERED: ACHD5005 PO (12:49)
--- NOTE | 2017-11-12 14:21 | Occupational Ther Daily Note ---
OT Current Status-Daily Note Subjective Pt seen in room, present, participated in OT. Often refused to move R UE more than a couple of times because "it hurts too much" but she would use it for functional activities such as reaching for her 's hand or doing puzzles in book Appearance Awake, confused Mental Status/Objective Functional [place] Measure 0=Not Assessed/NA 4=Minimal Assistance 1=Total Assistance 5=Supervision or Setup 2=Maximal Assistance 6=Modified [place] 3=Moderate Assistance 7=Complete [place] Other Treatment Pt had difficulty following verbal directions and responded better with following demonstration. She squeezed pink sponge about 10 reps with L hand but only about 5 with R. Raised arms up over head for several reps before stopping. Also able to touch shoulders with hands several times. Dressing had been changed and did not look too tight. reported that she had fed herself about 90% of lunch, using R hand. Nursing reported that they had been standing pt to toilet, placing bedpan in chair, but said that she had not been helping with the standing as far as he could see. Pt anticipating discharge to [facility] tomorrow for continued rehab. Pt left up in recliner, R arm elevated on pillow, all needs met. Education OT Patient Education: Exercise program, Progress toward Goal/Update tx plan, Purpose of tx/functional activities Teaching Recipient: Patient Teaching Methods: Demonstration, Discussion Response to Teaching: Verbalize Understanding, Return Demonstration, Reinforcement Needed OT Short Term Goals Short Term Goals 1=Demonstrate adherence to instructed precautions during ADL tasks. 2=Patient will verbalize/demonstrate understanding of assistive devices/ modifications for ADL. 3=Patient will improve strength/tolerance for activity to enable patient to perform ADL's. OT Intermediate Goals Smoking Pipe Maker Goals Time Frame: November 18, 2017 Eating (FIM): 5 Grooming(FIM): 5 Bathing(FIM): 4 Upper Body Dressing(FIM): 5 Lower Body Dressing(FIM): 4 Toileting(FIM): 3 Toilet/Commode Transfer(FIM): 4 Shower Transfer(FIM): 4 Additional Goals: 1-Demonstrate ADL Tasks, 2-Verbalize Understanding, 3- ImproveStrength/Hieu 1=Demonstrate adherence to instructed precautions during ADL tasks. 2=Patient will verbalize/demonstrate understanding of assistive devices/ modifications for ADL. 3=Patient will improve strength/tolerance for activity to enable patient to perform ADL's. OT Education/Plan Problem List/Assessment Pt would benefit from skilled OT to increase her independence in basic self care , which is limited by decreased weight bearing R LE and decreased functional use R hand after surgery. Discharge Recommendations Plan/Recommendations: Continue POC Treatment Plan/Plan of Care Patient would benefit from OT for education, treatment and training to promote independence in ADL's, mobility, safety and/or upper extremity function for ADL' s. Plan of Care: ADL Retraining, Caregiver Training, Functional Mobility, UE Funct Exercise/Act, UE Neuromus Re-Ed/Coord Treatment Duration: November 18, 2017 Frequency: 5 times per week Estimated Hrs Per Day: .25 hour per day (to .5) Agreement: Yes Rehab Potential: Poor Time/GCodes Start Time: 13:36 Stop Time: 13:50 Total Time Billed (hr/min): 14 Billed Treatment Time visit, 14 minutes exercise RAYNE PARKS OT Nov 12, 2017 14:21
--- NOTE | 2017-11-12 14:22 | Physical Therapy Daily Note ---
PT Daily Note-Current Subjective Patient remains up in recliner and declined back to bed. Pain Numeric Pain Scale: 5-Moderate Pain Location: Right Location Body Site: Hip Comment: FLACC Mental Status Patient Orientation: Confused Transfers Functional [place] Measure 0=Not Assessed/NA 4=Minimal Assistance 1=Total Assistance 5=Supervision or Setup 2=Maximal Assistance 6=Modified [place] 3=Moderate Assistance 7=Complete IndependenceIRFPAI Quality Coding Scale 6 Independent with activity with or without an assistive device 5 Patient requires set up or clean up by helper. Patient completes activity by themselves 4 Supervision or touching assist (CGA). [place] provide cues , steadying assist 3 The helper provides less than half the effort to complete the activity 2 The helper provides more than half the effort to complete the activity 1 Dependent. The helper does all the effort to complete an activity 7 Patient refused to complete or attempt activity 9 The patient did not perform the activity before the current illness or injury 88 Not attempted due to Medical conditions or safety concerns Weight Bearing Right Lower Extremity: Right Weight Bearing/Tolerated Left Lower Extremity: Left Full Weight Bearing can weight bear right arm using platform walker Exercises Supine Ex: Ankle pumps, Heel Slides Supine Reps: 15 Seated Therapy Exercises: Ankle pumps, Long arc quads Seated Reps: 15 Assessment Patient is pleasantly confused, however, did "dismiss" PT from performing exercises. Spouse present. Patient will transfer to [place] in a.m. PT Short Term Goals Short Term Goals Time Frame: November 18, 2017 Gait (FIM): 1 Gait Distance Comment: 20' Gait Level of Assist: 4 Gait Assistive Device: FWW PT Plan Treatment/Plan Treatment Plan: Continue Plan of Care Treatment Plan: Bed Mobility, Education, Functional Activity Hieu, Functional Strength, Gait, Safety, Therapeutic Exercise, Transfers Treatment Duration: November 18, 2017 Frequency: 11 times per week Estimated Hrs Per Day: .25 hour per day (15-30') Patient and/or Family Agrees t: Yes Time/GCodes Time In: 1350 Time Out: 1400 Total Billed Treatment Time: 10 Total Billed Treatment 1 visit EX 10 min KEL LANDRY PT Nov 12, 2017 14:22
[2017-11-12 16:00] VITALS: BP 128/62
[2017-11-12] MEDS ORDERED: BISACODYL 10 MG SUPP (DULCOLAX) ONE (18:08)
[2017-11-12 20:00] VITALS: BP 143/68
[2017-11-13] VITALS: BP 146/71
[2017-11-13] MEDS: HYDROcodone/APAP 5 MG/325 MG (LORTAB) TAB PO PRN ×2 (03:58→09:06)
[2017-11-13 04:00] VITALS: BP 155/69
[2017-11-13 06:12] LABS: BASOPHILS % (AUTO) 1 % (0-10); EOSINOPHILS # (AUTO) 0.1 10^3/uL (0.0-0.3); EOSINOPHILS % (AUTO) 2 % (0-10); HEMATOCRIT 31 % (35-52); HEMOGLOBIN 10.4 G/DL (11.5-16.0); LYMPHOCYTES # (AUTO) 0.5 X 10^3 (1.0-4.0); LYMPHOCYTES % (AUTO) 12 % (12-44); MEAN CORPUSCULAR HEMOGLOBIN 34 PG (25-34); MEAN CORPUSCULAR HGB CONC 34 G/DL (32-36); MEAN CORPUSCULAR VOLUME 100 FL (80-99); MEAN PLATELET VOLUME 10.2 FL (7.4-10.4); MONOCYTES # (AUTO) 0.5 X 10^3 (0.0-1.0); MONOCYTES % (AUTO) 11 % (0-12); NEUTROPHILS # (AUTO) 3.2 X 10^3 (1.8-7.8); NEUTROPHILS % (AUTO) 74 % (42-75); PLATELET COUNT 203 10^3/uL (130-400); RED BLOOD COUNT 3.06 10^6/uL (4.35-5.85); RED CELL DISTRIBUTION WIDTH 14.6 % (10.0-14.5); WHITE BLOOD COUNT 4.3 10^3/uL (4.3-11.0)
[2017-11-13 06:32] LABS: ALANINE AMINOTRANSFERASE 10 U/L (0-55); ALBUMIN 2.8 GM/DL (3.2-4.5); ALKALINE PHOSPHATASE 47 U/L (40-136); BILIRUBIN,TOTAL 0.7 MG/DL (0.1-1.0); BUN/CREATININE RATIO 23; CALCIUM 7.9 MG/DL (8.5-10.1); CARBON DIOXIDE 26 MMOL/L (21-32); CHLORIDE 105 MMOL/L (98-107); CREATININE SERUM 0.56 MG/DL (0.60-1.30); GFR ESTIMATED > 60; GLUCOSE 101 MG/DL (70-105); POTASSIUM 3.2 MMOL/L (3.6-5.0); SODIUM 138 MMOL/L (135-145); TOTAL PROTEIN 4.6 GM/DL (6.4-8.2)
[2017-11-13 08:00] VITALS: BP 147/68
[2017-11-13] MEDS: ENOXAPARIN 30 MG/0.3 ML (LOVENOX) SYR SC SCH (09:05)
[2017-11-13] MEDS: DOCUSATE SODIUM 100 MG (COLACE) CAP PO SCH (09:06)
[2017-11-13] MEDS: SENNOSIDES 8.6 MG (SENOKOT) TAB PO SCH (09:06)
[2017-11-13] MEDS ORDERED: ENOX30DI4 SC (10:28)
[2017-11-13] MEDS ORDERED: DOCU-143 PO (10:29)
[2017-11-13] MEDS ORDERED: KCL 20 MEQ TAB (K-DUR) PO NR (10:30)
--- NOTE | 2017-11-13 10:32 | Discharge Summary-Hospitalist ---
Diagnosis/Chief Complaint Date of Admission Nov 10, 2017 at 00:15 Date of Discharge Discharge Date: Nov 13, 2017 Discharge Diagnosis Right hip fracture POD # 3 Dementia Hypothyroidism Constipation resolved Plan: Physical therapy Needs fci at discharge on Thursday (1) Hypothyroidism Status: Chronic (2) Dementia Status: Chronic (3) Hip fracture, right Status: Acute (4) Constipation Status: Resolved Discharge Summary Discharge Physical Exam Allergies: Coded Allergies: No Known Drug Allergies (Unverified , 11/10/17) Vitals & I&Os Vital Signs Date Time Temp Pulse Resp B/P (MAP) Pulse Ox O2 Delivery O2 Flow Rate FiO2 11/13/17 09:00 Nasal Cannula 3.00 11/13/17 08:00 97.8 82 20 147/68 (94) 94 General Appearance: Alert, Cooperative, Other (demented severe) Respiratory: Clear to Auscultation Cardiovascular: Regular Rate Hospital Course Hospital course: Patient had an uneventful hospital course she was admitted with a hip fracture from [place] after a fall she had an uncomplicated repair by orthopedic surgery and had no complications postoperatively except for mild hypokalemia and mild postop constipation that the constipation resolved at time of discharge and the potassium was still low at time of discharge because she refused to take the potassium. Overall patient's prognosis very poor considering the severe dementia and Dr. Fournier her primary care provider was updated on the plan and he agreed. Labs (last 24 hrs) Laboratory Tests 11/13/17 05:45: White Blood Count 4.3, Red Blood Count 3.06L, Hemoglobin 10.4L, Hematocrit 31L, Mean Corpuscular Volume 100H, Mean Corpuscular Hemoglobin 34, Mean Corpuscular Hemoglobin Concent 34, Red Cell Distribution Width 14.6H, Platelet Count 203, Mean Platelet Volume 10.2, Neutrophils (%) (Auto) 74, Lymphocytes (%) (Auto) 12 , Monocytes (%) (Auto) 11, Eosinophils (%) (Auto) 2, Basophils (%) (Auto) 1, Neutrophils # (Auto) 3.2, Lymphocytes # (Auto) 0.5L, Monocytes # (Auto) 0.5, Eosinophils # (Auto) 0.1, Basophils # (Auto) 0.0, Sodium Level 138, Potassium Level 3.2L, Chloride Level 105, Carbon Dioxide Level 26, Anion Gap 7, Blood Urea Nitrogen 13, Creatinine 0.56L, Estimat Glomerular Filtration Rate > 60, BUN /Creatinine Ratio 23, Glucose Level 101, Calcium Level 7.9L, Total Bilirubin 0.7 , Aspartate Amino Transf (AST/SGOT) 22, Alanine Aminotransferase (ALT/SGPT) 10, Alkaline Phosphatase 47, Total Protein 4.6L, Albumin 2.8L Microbiology 11/10/17 MRSA Screen - Final, Complete MRSA not isolated Patient resulted labs reviewed. Pending Labs Laboratory Tests 11/13/17 05:45: White Blood Count 4.3, Red Blood Count 3.06, Hemoglobin 10.4, Hematocrit 31, Mean Corpuscular Volume 100, Mean Corpuscular Hemoglobin 34, Mean Corpuscular Hemoglobin Concent 34, Red Cell Distribution Width 14.6, Platelet Count 203, Mean Platelet Volume 10.2, Neutrophils (%) (Auto) 74, Lymphocytes (%) (Auto) 12 , Monocytes (%) (Auto) 11, Eosinophils (%) (Auto) 2, Basophils (%) (Auto) 1, Neutrophils # (Auto) 3.2, Lymphocytes # (Auto) 0.5, Monocytes # (Auto) 0.5, Eosinophils # (Auto) 0.1, Basophils # (Auto) 0.0, Sodium Level 138, Potassium Level 3.2, Chloride Level 105, Carbon Dioxide Level 26, Anion Gap 7, Blood Urea Nitrogen 13, Creatinine 0.56, Estimat Glomerular Filtration Rate > 60, BUN/ Creatinine Ratio 23, Glucose Level 101, Calcium Level 7.9, Total Bilirubin 0.7, Aspartate Amino Transf (AST/SGOT) 22, Alanine Aminotransferase (ALT/SGPT) 10, Alkaline Phosphatase 47, Total Protein 4.6, Albumin 2.8 Discussion & Recommendations Discharge Planning: <30 minutes discharge planning Discharge Home Medications: Active Scripts Active Colace (Docusate Sodium) 100 Mg Capsule 100 Mg PO BID 30 Days Enoxaparin Sodium 30 Mg/0.3 Ml Syringe 30 Mg SC BID@08,20 14 Days Hydrocodone/Acetaminophen 5/325mg Tablet (Acetaminophen/Hydrocodone Bitart) 1 Tab Tab 1-2 Tab PO Q4H PRN Reported Calcium (Calcium Carbonate) 600 Mg Tablet 600 Mg PO DAILY [Thyroid Tissue 130MG] 65 Mg PO DAILY TAKES 1/2 (130MG) TABLET Instructions to patient/family Please see electronic discharge instructions given to patient. Clinical Quality Measures DVT/VTE Risk/Contraindication: Risk Factor Score Per Nursin RFS Level Per Nursing on Admit: 4+=Very High Problem Qualifiers (1) Hypothyroidism: Hypothyroidism type: acquired Qualified Codes: E03.9 - Hypothyroidism, unspecified (2) Dementia: Dementia type: Alzheimer's disease Alzheimer's disease onset: unspecified onset Dementia behavioral disturbance: without behavioral disturbance Qualified Codes: G30.9 - Alzheimer's disease, unspecified; F02.80 - Dementia in other diseases classified elsewhere without behavioral disturbance (3) Hip fracture, right: Encounter type: initial encounter Fracture type: closed Qualified Codes: S72.001A - Fracture of unspecified part of neck of right femur, initial encounter for closed fracture (4) Constipation: Constipation type: drug induced constipation Qualified Codes: K59.03 - Drug induced constipation MILLIE MONTOYA DO Nov 13, 2017 10:32
--- NOTE | 2017-11-13 10:32 | Discharge Inst-Skilled Nursing ---
Discharge Inst-Skilled NF Patient Instructions Patient Problems: Hip fracture Dementia Hypothyroidism Hypokalemia Consult/Follow Up/Orders Follow Up Appt.: Dr Fournier in 1 week Skilled NF Admit to: [facility] Certification (SNF) I certify that SNF services are required to be given on an inpatient basis because of the above named patient's need for nursing home care on a continuing basis for the conditions(s) for which he/she was receiving inpatient hospital services prior to his/her transfer to the SNF. Long-Term Facility Order: Nursing Services, Digital Computer Operator-Evaluate & Treat, Physical Therapy-Evaluate & Treat, Speech Language-Evaluate & Treat Discharge Diet: No Restrictions Daily Activity as Tolerated: Yes New & Resume Previous Orders Josefa Escobedo Nov 13, 2017 10:29 Pneu Vac Indicated: Yes JOSEFA ESCOBEDO DO Nov 13, 2017 10:31
== END 2017-11-13 12:30 | DRG 481 ==
LOC: 4TH 11-10 00:15
PROVIDERS: ADMIT Orthopaedic Surgery; ATTEND Orthopaedic Surgery
PROC: 0PBK0ZZ Excision of Right Ulna, Open Approach (ICD-10-PCS; 2017-11-10)
PROC: 0QH634Z Insertion of Internal Fixation Device into Right Upper Femur, Percutaneous Approach (ICD-10-PCS; principal; 2017-11-10 14:10)
PROC: 0RSN04Z Reposition Right Wrist Joint with Internal Fixation Device, Open Approach (ICD-10-PCS; 2017-11-10 14:10)
DX: S72.001A Fracture of unspecified part of neck of right femur, initial encounter for closed fracture (principal); S52.501A Unspecified fracture of the lower end of right radius, initial encounter for closed fracture; S52.601A Unspecified fracture of lower end of right ulna, initial encounter for closed fracture; E78.5 Hyperlipidemia, unspecified; G30.9 Alzheimer's disease, unspecified; F02.80 Dementia in other diseases classified elsewhere, unspecified severity, without behavioral disturbance, psychotic disturbance, mood disturbance, and anxiety; E03.9 Hypothyroidism, unspecified; M19.91 Primary osteoarthritis, unspecified site; K59.03 Drug induced constipation; T40.2X5A Adverse effect of other opioids, initial encounter; W18.09XA Striking against other object with subsequent fall, initial encounter; Y92.481 Parking lot as the place of occurrence of the external cause; Z85.3 Personal history of malignant neoplasm of breast; Z85.42 Personal history of malignant neoplasm of other parts of uterus; Z96.642 Presence of left artificial hip joint
CPT/HCPCS: 36415; 80053; 85014; 85018; 85025; 87081; 94664; 94760

== ENCOUNTER 2017-12-25 14:08 | Emergency (ER) | payer MEDICARE ==
[~2017-12-25] VITALS: Ht 165.1 cm; Wt 65.8 kg
[~2017-12-25 14:08] MED LIST: ACHD5005 PO; CALC600T12 PO; DOCU-143 PO; ENOX30DI4 SC; [UNRECOGNIZED DRUG - OTHER] PO
--- NOTE | 2017-12-25 16:10 | ED Upper Extremity ---
General Chief Complaint: Upper Extremity Stated Complaint: LT WRIST INJ Nursing Triage Note: REPORTS THAT PT C/O PAIN TO LEFT THUMB STARTING ABOUT 2 DAYS AGO, AND THIS AM NOTICED THE REDNESS, WARMTH, SWOLLEN LEFT WRIST. REPORTS PT HAVING HISTORY OF ARTHRITIS BUT DENIES GOUT. 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 Nursing Sepsis Screen: No Definite Risk Source: patient Exam Limitations: no limitations History of Present Illness Date Seen by Provider: Dec 25, 2017 Time Seen by Provider: 16:06 Initial Comments To ER with c/o left wrist swelling and redness with of unknown cause x2 days. She is severely demented and contribute to HPI. Onset: this evening Severity: moderate Pain/Injury Location: right wrist Modifying Factors: Worse With Movement Allergies and Home Medications Allergies Coded Allergies: No Known Drug Allergies (Unverified , 11/10/17) Home Medications Ibuprofen 400 Mg Tablet, 400 MG PO Q8H PRN for PAIN Prescribed by: ZHEN MALDONADO on 12/25/17 1634 Patient Home Medication List Home Medication List Reviewed: Yes Constitutional: see HPI; No chills EENTM: see HPI Respiratory: no symptoms reported Cardiovascular: no symptoms reported Genitourinary: no symptoms reported Musculoskeletal: see HPI, joint pain, joint swelling Skin: no symptoms reported Psychiatric/Neurological: No Symptoms Reported Past Lvyexgv-Ejdmtn-Dntwlq Hx Patient Social History Alcohol Use: Denies Use Recreational Drug Use: No Smoking Status: Never a Smoker Recent Foreign Travel: No Contact w/Someone Who Travel: No Recent Infectious Disease Expo: No Recent Hopitalizations: Yes (APPROX 2 MONTHS AGO) Physical Abuse: No Sexual Abuse: No Mistreated: No Fear: No Immunizations Up To Date Tetanus Booster (TDap): Unknown Seasonal Allergies Seasonal Allergies: No Past Medical History Surgeries: Yes (RIGHT HIP, RIGHT WRIST) Orthopedic Respiratory: No Cardiac: No Neurological: Yes Dementia Genitourinary: No Gastrointestinal: No Musculoskeletal: Yes (POSSIBLE ARTHRITIS) Arthritis, Fractures Endocrine: No HEENT: No Cancer: No Psychosocial: No Nursing Suicide Risk Score: 1 Integumentary: No Blood Disorders: No Physical Exam Vital Signs Vital Signs - First Documented 12/25/17 15:34 Pulse 114 Resp 18 B/P (MAP) 124/81 (95) Pulse Ox 95 O2 Delivery Room Air Capillary Refill : Less Than 3 Seconds General Appearance: WD/WN, no apparent distress HEENT: PERRL/EOMI, normal ENT inspection Neck: non-tender, full range of motion Respiratory: no respiratory distress, no accessory muscle use Gastrointestinal: normal bowel sounds, non tender Shoulder: normal inspection, non-tender Elbow/Forearm: normal inspection, non-tender Wrist: Yes normal inspection, Yes non-tender Hand: Left, swelling (swelling to left wrist with erythema. ) Neurologic/Psychiatric: alert, disoriented x 3 Skin: normal color, warm/dry Progress/Results/Core Measures Results/Orders My Orders Orders - ZHEN MALDONADO APRN Wrist, Left, 3 Views Or More (12/25/17 15:50) Vital Signs/I&O 12/25/17 15:34 Pulse 114 Resp 18 B/P (MAP) 124/81 (95) Pulse Ox 95 O2 Delivery Room Air Blood Pressure Mean: 95 Departure Communication (Admissions) patient had normal renal function in October Impression Primary Impression: Arthritis of left wrist Additional Impression: suspected pseudogout left wrist Disposition: HOME, SELF-CARE Condition: Stable Departure-Patient Inst. Decision time for Depature: 16:32 Referrals: PIPPA GUNN MD (PCP/Family) Primary Care Physician Patient Instructions: Pseudogout (DC) Add. Discharge Instructions: . Anti-inflammatories such as naproxen or ibuprofen for the next 2-3 days. Follow-up with her doctor next week. Return to ER for worsening swelling redness or other concerns.All discharge instructions reviewed with patient and/ or family. Voiced understanding. Scripts Ibuprofen (Ibuprofen) 400 Mg Tablet 400 MG PO Q8H PRN for PAIN, #30 TAB Prov: ZHEN MALDONADO APRN 12/25/17 ZHEN MALDONADO APRN Dec 25, 2017 16:10
--- NOTE | 2017-12-25 16:21 | Diagnostic Imaging Report ---
INDICATION: Left wrist pain. AP, oblique, and lateral views of the left wrist are obtained. There is degenerative change of the first carpometacarpal joint and midcarpal joint as well as the radiocarpal joint. There is chondrocalcinosis compatible with calcium pyrophosphate deposition. There is no acute fracture or acute bony abnormality. 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 No acute bony abnormality. Dictated by: Dictated on workstation # [id number]
[2017-12-25] MEDS ORDERED: IBUP-1779 PO (16:34)
[2017-12-25 16:44] VITALS: BP 124/81
== END 2017-12-25 16:54 | disposition home or self-care (01) ==
LOC: EDUNIT# 14:08 → ER 14:11
DX: M19.032 Primary osteoarthritis, left wrist (principal); F03.90 Unspecified dementia, unspecified severity, without behavioral disturbance, psychotic disturbance, mood disturbance, and anxiety; Z87.81 Personal history of (healed) traumatic fracture; Z98.890 Other specified postprocedural states
CPT/HCPCS: 73110

== ENCOUNTER 2018-01-04 17:53 | Emergency (ER) | payer MEDICARE ==
[~2018-01-04] VITALS: Ht 162.6 cm; Wt 54.4 kg
[~2018-01-04 17:53] MED LIST changes: +IBUP-1779 PO
--- NOTE | 2018-01-04 18:23 | ED GI ---
General Stated Complaint: RECTAL PROLAPSE Source of Information: Patient, Family ( and daughter) Exam Limitations: No Limitations History of Present Illness Date Seen by Provider: Jan 04, 2018 Time Seen by Provider: 18:01 Initial Comments The patient presents to the ER by Private conveyance with her daughter and with a chief complaint that she's been suffering from dementia as of lately as well as a fall that resulted in fractured hip and says she's [facility] for the past several weeks. She had an appointment with Dr. Bobby davis today and the daughter went to pick her up and she had a soiled diaper so she went to change her. When she went to change her she said there is a small golf ball-sized round red nodule coming from the rectum that she had never seen before. She does not seem to have any discomfort or pain or bleeding. She does not have a history of rectal prolapse. So the Doctor's appointment in the ER to have it checked out. The daughter did some internet research and decided a rectal prolapse was possible. the pt is not wallking well. Allergies and Home Medications Allergies Coded Allergies: No Known Drug Allergies (Unverified , 11/10/17) Home Medications Ibuprofen 400 Mg Tablet, 400 MG PO Q8H PRN for PAIN Prescribed by: ZHEN MALDONADO on 12/25/17 4884 Patient Home Medication List Home Medication List Reviewed: Yes Review of Systems Constitutional: No chills, No diaphoresis EENTM: No Blurred Vision, No Double Vision, No Eye Pain Respiratory: Denies Cough, Denies Shortness of Air Cardiovascular: Denies Chest Pain, Denies Edema Gastrointestinal: Denies Abdomen Distended, Denies Abdominal Pain Genitourinary: Denies Burning, Denies Discharge Musculoskeletal: No back pain, No joint pain Past Vpapytz-Fnfjfz-Dnwhbv Hx Patient Social History Alcohol Use: Denies Use Recreational Drug Use: No Smoking Status: Never a Smoker Recent Foreign Travel: No Contact w/Someone Who Travel: No Recent Hopitalizations: Yes (APPROX 2 MONTHS AGO) Immunizations Up To Date Tetanus Booster (TDap): Unknown Seasonal Allergies Seasonal Allergies: No Past Medical History Surgeries: Yes (RIGHT HIP, RIGHT WRIST) Orthopedic Respiratory: No Cardiac: No Neurological: Yes Dementia Genitourinary: No Gastrointestinal: No Musculoskeletal: Yes (POSSIBLE ARTHRITIS) Arthritis, Fractures Endocrine: No HEENT: No Cancer: No Psychosocial: No Integumentary: No Blood Disorders: No Physical Exam Vital Signs Capillary Refill : General Appearance: WD/WN, no apparent distress HEENT: PERRL/EOMI, pharynx normal Respiratory: no respiratory distress, no accessory muscle use Cardiovascular: normal peripheral pulses, regular rate, rhythm, other ( bilateral pedal edema 1+) Gastrointestinal: normal bowel sounds, non tender, soft Rectal: normal exam, normal rectal tone; No black stool, No blood streaked stool Genital/Rectal: normal genital exam, normal rectal exam Neurologic/Psychiatric: alert, normal mood/affect, other (oriented to person only) Progress/Results/Core Measures Progress Progress Note : Time: 18:22 Progress Note Rectal prolapse seems likely and it has spontaneously resolved before we got to it. There is a stage II pressure ulcer on her left buttock. Did some incontinence care teaching as well as how to manage a rectal prolapse and will refer them to Dr. Rasmussen, General Surgery. Discussed Calmoseptine or similar barriers skin care cream with the zinc. Because reports that these pressure ulcer is actually getting better since he started doctoring it. Consults : Consulting Physician: ALEXX RASMUSSEN MD Consults Notes Discussed the case and he would be happy to see the patient in the clinic. Departure Impression Primary Impression: Rectal prolapse Additional Impression: Pressure ulcer, stage II Qualified Codes: L89.322 - Pressure ulcer of left buttock, stage 2 Disposition: 01 HOME, SELF-CARE Condition: Stable Departure-Patient Inst. Decision time for Depature: 18:39 Referrals: PIPPA GUNN MD (PCP/Family) Primary Care Physician ALEXX RASMUSSEN MD Patient Instructions: How to Prevent Pressure Ulcers, Rectal Prolapse in Adults Add. Discharge Instructions: Obtain some thick barrier cream ointment for her pressure ulcer on her buttock such as vitamin A and D ointment or something with zinc-like Calmoseptine and you can apply a thick layer over just pressure ulcer. You will not need to wipe it off every time you clean her backside. Call Dr. Rasmussen clinic and request an appointment to discuss her rectal prolapse tomorrow morning. If she has a repeat rectal prolapse just use a wet wipe or some toilet paper and applied gentle but firm pressure back into the rectum. If you're unable to get it to resolve or if it is just getting worse or continues to recur then you can bring her back to the ER. Copy Copies To 1: PIPPA GUNN MD; ALEXX RASMUSSEN MD, TITUS J Jan 04, 2018 18:23
[2018-01-04 18:43] VITALS: BP 146/78
== END 2018-01-04 19:03 | disposition home or self-care (01) ==
LOC: EDUNIT# 17:53 → ER 17:55
DX: K62.3 Rectal prolapse (principal); L89.92 Pressure ulcer of unspecified site, stage 2; F03.90 Unspecified dementia, unspecified severity, without behavioral disturbance, psychotic disturbance, mood disturbance, and anxiety; Z87.81 Personal history of (healed) traumatic fracture; Z98.890 Other specified postprocedural states
CPT/HCPCS: 99282

== ENCOUNTER 2018-09-06 23:28 | Emergency (ER) | payer MEDICARE ==
[~2018-09-06] VITALS: Ht 167.6 cm; Wt 61.2 kg
--- NOTE | 2018-09-06 23:46 | ED General ---
General Chief Complaint: Altered Mental Status Stated Complaint: CONFUSION Source of Information: Caregiver, Family Exam Limitations: Physical Impairments History of Present Illness Date Seen by Provider: Sep 06, 2018 Time Seen by Provider: 23:28 Initial Comments 88 yr old female with hx of dementia presents with hx of having gone to bed at 2100. 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 EMS was summoned and she woke up promptly at her baseline. Glucose and VS were normal. She was transported here for further evaluation. No hx of slurred speech, lateralizing paresthesias/weakness, incontinence or other associated sx. No seizure activity was witnessed. No known head injury or new medications. She is not on any prescription meds but takes several OTC supplements. Allergies and Home Medications Allergies Coded Allergies: No Known Drug Allergies (Unverified , 11/10/17) Home Medications Ibuprofen 400 Mg Tablet, 400 MG PO Q8H PRN for PAIN Prescribed by: ZHEN MALDONADO on 12/25/17 3607 Patient Home Medication List Home Medication List Reviewed: Yes Review of Systems Review of Systems Constitutional: see HPI History unobtainable except for HPI from due to pt chronic medical condition. Past Xeuhvul-Lbxxxx-Pokggl Hx Past Med/Social Hx: Reviewed Nursing Past Med/Soc Hx Patient Social History Recent Foreign Travel: No (N) Contact w/Someone Who Travel: No Recent Hopitalizations: Yes (APPROX 2 MONTHS AGO) Immunizations Up To Date Tetanus Booster (TDap): Unknown Seasonal Allergies Seasonal Allergies: No Past Medical History Surgeries: Yes (RIGHT HIP, RIGHT WRIST) Orthopedic Respiratory: No Cardiac: No Neurological: Yes Dementia Genitourinary: No Gastrointestinal: No Musculoskeletal: Yes (POSSIBLE ARTHRITIS) Arthritis, Fractures Endocrine: No HEENT: No Cancer: No Psychosocial: No Integumentary: No Blood Disorders: No Physical Exam Vital Signs Vital Signs - First Documented 09/06/18 23:40 Temp 97.5 Pulse 75 Resp 16 B/P (MAP) 155/78 (103) Pulse Ox 96 O2 Delivery Room Air Capillary Refill : Height, Weight, BMI Height: 5'4.00" Weight: 120lbs. 9.0oz. 54.570748ei; 22.6 BMI Method:Estimated General Appearance: No Apparent Distress, WD/WN, Anxious, Chronically ill Eyes: Bilateral Eye Normal Inspection, Bilateral Eye PERRL, Bilateral Eye EOMI HEENT: PERRL/EOMI, TMs Normal, Normal ENT Inspection, Pharynx Normal Neck: Full Range of Motion, Normal Inspection, Non Tender, Supple, Carotid Bruit Respiratory: Chest Non Tender, Lungs Clear, Normal Breath Sounds, No Accessory Muscle Use, No Respiratory Distress Cardiovascular: Regular Rate, Rhythm, No Edema, No Gallop, No JVD, No Murmur, Normal Peripheral Pulses Gastrointestinal: Normal Bowel Sounds, No Organomegaly, No Pulsatile Mass, Non Tender, Soft Back: Normal Inspection, No CVA Tenderness, No Vertebral Tenderness Extremity: Normal Capillary Refill, Normal Inspection, Normal Range of Motion, Non Tender, No Calf Tenderness, No Pedal Edema Neurologic/Psychiatric: Alert; No Oriented x3; No Motor/Sensory Deficits, Normal 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, 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 Norm as Tested Reflexes: 1+ Bicep (R), 1+ Bicep (L) Skin: Normal Color, Warm/Dry Lymphatic: No Adenopathy Progress/Results/Core Measures Suspected Sepsis SIRS Temperature: Pulse: Respiratory Rate: Laboratory Tests 09/06/18 00:10: White Blood Count 3.9L Blood Pressure / Mean: Laboratory Tests 09/06/18 00:10: Creatinine 0.52L, Platelet Count 270, Total Bilirubin 0.8 Results/Orders Lab Results Laboratory Tests Test 09/06/18 00:10 Range/Units White Blood Count 3.9 L 4.3-11.0 10^3/uL Red Blood Count 3.51 L 4.35-5.85 10^6/uL Hemoglobin 12.2 11.5-16.0 G/DL Hematocrit 36 35-52 % Mean Corpuscular Volume 102 H 80-99 FL Mean Corpuscular Hemoglobin 35 H 25-34 PG Mean Corpuscular Hemoglobin Concent 34 32-36 G/DL Red Cell Distribution Width 14.1 10.0-14.5 % Platelet Count 270 130-400 10^3/uL Mean Platelet Volume 10.1 7.4-10.4 FL Neutrophils (%) (Auto) 54 42-75 % Lymphocytes (%) (Auto) 33 12-44 % Monocytes (%) (Auto) 11 0-12 % Eosinophils (%) (Auto) 1 0-10 % Basophils (%) (Auto) 1 0-10 % Neutrophils # (Auto) 2.1 1.8-7.8 X 10^3 Lymphocytes # (Auto) 1.3 1.0-4.0 X 10^3 Monocytes # (Auto) 0.4 0.0-1.0 X 10^3 Eosinophils # (Auto) 0.1 0.0-0.3 10^3/uL Basophils # (Auto) 0.0 0.0-0.1 10^3/uL Sodium Level 131 L 135-145 MMOL/L Potassium Level 4.1 3.6-5.0 MMOL/L Chloride Level 94 L 98-107 MMOL/L Carbon Dioxide Level 24 21-32 MMOL/L Anion Gap 13 5-14 MMOL/L Blood Urea Nitrogen 15 7-18 MG/DL Creatinine 0.52 L 0.60-1.30 MG/DL Estimat Glomerular Filtration Rate > 60 BUN/Creatinine Ratio 29 Glucose Level 105 70-105 MG/DL Calcium Level 8.9 8.5-10.1 MG/DL Corrected Calcium 9.1 8.5-10.1 MG/DL Total Bilirubin 0.8 0.1-1.0 MG/DL Aspartate Amino Transf (AST/SGOT) 15 5-34 U/L Alanine Aminotransferase (ALT/SGPT) 9 0-55 U/L Alkaline Phosphatase 77 40-136 U/L Total Protein 6.2 L 6.4-8.2 GM/DL Albumin 3.7 3.2-4.5 GM/DL My Orders Orders - PIPPA MADRIGAL MD Cbc With Automated Diff (09/06/18 23:39) Comprehensive Metabolic Panel (09/06/18 23:39) Thyroid Stimulating Hormone (09/06/18 23:39) Ekg Tracing (09/06/18 23:48) Vital Signs/I&O 09/06/18 23:40 Temp 97.5 Pulse 75 Resp 16 B/P (MAP) 155/78 (103) Pulse Ox 96 O2 Delivery Room Air Capillary Refill : Progress Note : Time: 23:46 Progress Note Pt has no focal findings, normal glucose and baseline alertness. Will obtain lab testing and monitor. Discussed CT with and he states preference not to obtain one at this point without apparent indication. Will monitor for additional mental status changes and adjust evaluation plan, if needed. 0056 Pt remaining alert and at her baseline. Discussed lab results and recommended following up with Dr. Fournier for TSH results and for follow up in 2-3 days. Departure Impression Primary Impression: Altered mental status Qualified Codes: R41.0 - Disorientation, unspecified Additional Impression: Dementia Qualified Codes: F03.91 - Unspecified dementia with behavioral disturbance Disposition: 01 HOME, SELF-CARE Condition: Improved Departure-Patient Inst. Decision time for Depature: 00:58 Referrals: PIPPA FOURNIER MD (PCP/Family) Primary Care Physician 2-3 days Patient Instructions: Dementia (DC) Add. Discharge Instructions: Your TSH test is pending. Please check with Dr. Fournier for the results and for follow up in 2-3 days. All discharge instructions reviewed with patient and/or family. Voiced understanding. PIPPA MADRIGAL MD Sep 06, 2018 23:45
--- NOTE | 2018-09-07 00:05 | NUR ---
pt dcd own iv, cath intact
[2018-09-07 00:27] LABS: HEMATOCRIT 36 % (35-52); HEMOGLOBIN 12.2 G/DL (11.5-16.0); MEAN CORPUSCULAR HEMOGLOBIN 35 PG (25-34); MEAN CORPUSCULAR VOLUME 102 FL (80-99); WHITE BLOOD COUNT 3.9 10^3/uL (4.3-11.0)
[2018-09-07 00:28] LABS: BASOPHILS % (AUTO) 1 % (0-10); EOSINOPHILS % (AUTO) 1 % (0-10); LYMPHOCYTES % (AUTO) 33 % (12-44); MEAN CORPUSCULAR HGB CONC 34 G/DL (32-36); MEAN PLATELET VOLUME 10.1 FL (7.4-10.4); MONOCYTES % (AUTO) 11 % (0-12); NEUTROPHILS % (AUTO) 54 % (42-75); PLATELET COUNT 270 10^3/uL (130-400); RED CELL DISTRIBUTION WIDTH 14.1 % (10.0-14.5)
[2018-09-07 00:29] LABS: EOSINOPHILS # (AUTO) 0.1 10^3/uL (0.0-0.3); LYMPHOCYTES # (AUTO) 1.3 X 10^3 (1.0-4.0); MONOCYTES # (AUTO) 0.4 X 10^3 (0.0-1.0); NEUTROPHILS # (AUTO) 2.1 X 10^3 (1.8-7.8)
[2018-09-07 00:46] LABS: BILIRUBIN,TOTAL 0.8 MG/DL (0.1-1.0); BUN/CREATININE RATIO 29; CALCIUM 8.9 MG/DL (8.5-10.1); CARBON DIOXIDE 24 MMOL/L (21-32); CHLORIDE 94 MMOL/L (98-107); CREATININE SERUM 0.52 MG/DL (0.60-1.30); GFR ESTIMATED > 60; GLUCOSE 105 MG/DL (70-105); POTASSIUM 4.1 MMOL/L (3.6-5.0); SODIUM 131 MMOL/L (135-145)
[2018-09-07 00:47] LABS: ALANINE AMINOTRANSFERASE 9 U/L (0-55); ALBUMIN 3.7 GM/DL (3.2-4.5); ALKALINE PHOSPHATASE 77 U/L (40-136); TOTAL PROTEIN 6.2 GM/DL (6.4-8.2)
[2018-09-07 01:08] VITALS: BP 119/90
== END 2018-09-07 01:08 | disposition home or self-care (01) ==
LOC: EDUNIT# 23:28 → ER FS 23:32
DX: R41.82 Altered mental status, unspecified (principal); F03.90 Unspecified dementia, unspecified severity, without behavioral disturbance, psychotic disturbance, mood disturbance, and anxiety
CPT/HCPCS: 36415; 80053; 84443; 85025; 93005

== ENCOUNTER 2019-02-11 10:04 | Observation (INO) | payer MEDICARE ==
[~2019-02-11] VITALS: Ht 165.1 cm; Wt 58.3 kg
--- OUTSIDE RECORDS SUMMARY | 2019-02-11 10:56 | XMS REPORT | Continuity of Care Document ---
Author Organization Unknown Address Unknown Allergies There is no data. Medications There is no data. Problems There is no data. Procedures There is no data. Results There is no data. Encounters ACCT No. Visit Date/Time Discharge Status Pt. Type Provider Facility Loc./Unit Complaint [id number] 12/23/2018 14:45:00 12/23/2018 23:59:59 CLS Outpatient SELF, NATALIA Mccauley [facility] BONILLA [facility]
--- NOTE | 2019-02-11 11:08 | Diagnostic Imaging Report ---
EXAMINATION: Chest radiograph, portable AP view. DATE: February 11, 2019 at 10:15 hours. INDICATION: 88-year-old female, fall. Bilateral hip pain. COMPARISON: None available. FINDINGS: There is a widened appearance of the mediastinum. Comparison imaging is not available to assess for potential stability. There is no identified pneumothorax. There is no identified large pleural effusion. There are coarse lung markings which may reflect changes of chronic lung disease. There is no identified alveolar consolidation. There is procedure material at the level of the junction of middle and lateral thirds of the left clavicle. IMPRESSION: 1. Widened appearance of the mediastinum. Comparison imaging is not available to assess for potential stability. Particularly if there is history of trauma at high risk for thoracic injury, CT chest is recommended for further assessment. 2. No otherwise identified potential acute cardiopulmonary abnormality. Dictated by: Dictated on workstation # [id number]
--- NOTE | 2019-02-11 11:24 | Diagnostic Imaging Report ---
EXAMINATION: Lumbar spine radiographs, 2 views, 3 images. COMPARISON: None. HISTORY: 88-year-old female, fall. Low back pain. FINDINGS: The bones appear demineralized. There are 5 lumbar type vertebral bodies. The alignment of the lumbar spine is grossly unremarkable. There is no identified compression deformity or otherwise identified fracture. There are mild disc degenerative changes at L4-L5. There are very mild endplate degenerative changes of the lumbar spine. IMPRESSION: 1. Bone demineralization without identified compression deformity or other fracture. 2. Mild disc degenerative changes most notable at L4-L5. Dictated by: Dictated on workstation # [id number]
[2019-02-11 12:26] LABS: BASOPHILS % (AUTO) 1 % (0-10); EOSINOPHILS % (AUTO) 1 % (0-10); HEMATOCRIT 35 % (35-52); HEMOGLOBIN 12.1 G/DL (11.5-16.0); LYMPHOCYTES # (AUTO) 0.7 X 10^3 (1.0-4.0); LYMPHOCYTES % (AUTO) 10 % (12-44); MEAN CORPUSCULAR HEMOGLOBIN 36 PG (25-34); MEAN CORPUSCULAR HGB CONC 35 G/DL (32-36); MEAN CORPUSCULAR VOLUME 103 FL (80-99); MEAN PLATELET VOLUME 9.7 FL (7.4-10.4); MONOCYTES # (AUTO) 0.6 X 10^3 (0.0-1.0); MONOCYTES % (AUTO) 10 % (0-12); NEUTROPHILS # (AUTO) 5.1 X 10^3 (1.8-7.8); NEUTROPHILS % (AUTO) 78 % (42-75); PLATELET COUNT 255 10^3/uL (130-400); RED CELL DISTRIBUTION WIDTH 14.3 % (10.0-14.5); WHITE BLOOD COUNT 6.5 10^3/uL (4.3-11.0)
--- NOTE | 2019-02-11 12:28 | ED General ---
General Chief Complaint: Altered Mental Status Stated Complaint: FALL Nursing Triage Note: PT UNSTEADY GAIT NORMALLY AND FELL YESTERDAY ONTO HER BUTTOCKS. PT IS A POOR HISPTORIAN AND UNABLE TO PINPOINT A SPECIFIC AREA OF PAIN BUT WOULD LIKE HER CHECKED OUT. Nursing Sepsis Screen: No Definite Risk Source of Information: Patient, Caregiver, Family Exam Limitations: No Limitations History of Present Illness Date Seen by Provider: Feb 11, 2019 Time Seen by Provider: 10:30 Initial Comments Patient is a year-old female with history of dementia cared for by her at home who presents with lower back pain after falling yesterday. Patient had an unwitnessed fall while using her walker. Patient spell states he her fall and immediately attended her. She was found to be sitting on her buttocks and complained of low back pain. Denies hitting her head there is no report of head trauma. Bruising swelling pain or tenderness over the scalp or neck. Patient's spouse states patient has been able to stand or weight-bear with assistance since the time of injury yesterday. Patient has not had recent sickness or illness or medication changes. No other acute symptoms or complaints. History is limited due to the presence of dementia. Timing/Duration: 12-24 Hours Severity: Moderate Modifying Factors: improves with Movement Allergies and Home Medications Allergies Coded Allergies: No Known Drug Allergies (Unverified , 11/10/17) Home Medications Ibuprofen 400 Mg Tablet, 400 MG PO Q8H PRN for PAIN Prescribed by: ZHEN MALDONADO on 12/25/17 3587 Patient Home Medication List Home Medication List Reviewed: Yes Review of Systems Review of Systems Constitutional: no symptoms reported EENTM: no symptoms reported Cardiovascular: no symptoms reported Gastrointestinal: no symptoms reported Genitourinary: no symptoms reported Musculoskeletal: back pain Skin: no symptoms reported Psychiatric/Neurological: No Symptoms Reported Hematologic/Lymphatic: No Symptoms Reported Immunological/Allergic: no symptoms reported All Other Systems Reviewed Negative Unless Noted: Yes Past Fjyevwg-Fqaady-Mqzvwz Hx Past Med/Social Hx: Reviewed Nursing Past Med/Soc Hx Patient Social History Alcohol Use: Denies Use Recreational Drug Use: No 2nd Hand Smoke Exposure: No Recent Foreign Travel: No Contact w/Someone Who Travel: No Recent Infectious Disease Expo: No Recent Hopitalizations: Yes (APPROX 2 MONTHS AGO) Physical Abuse: No Sexual Abuse: No Mistreated: No Fear: No Immunizations Up To Date Tetanus Booster (TDap): Unknown Seasonal Allergies Seasonal Allergies: No Past Medical History Surgeries: Yes (bilat HIP, RIGHT WRIST) Joint Replacement, Orthopedic, Tonsillectomy Respiratory: No Currently Using CPAP: No Currently Using BIPAP: No Cardiac: No Neurological: Yes Dementia Female Reproductive Disorders: Denies Sexually Transmitted Disease: No HIV/AIDS: No Genitourinary: No Gastrointestinal: No Musculoskeletal: Yes (POSSIBLE ARTHRITIS) Arthritis, Fractures Endocrine: No HEENT: No Cancer: No Psychosocial: No Integumentary: No Blood Disorders: No Physical Exam Vital Signs Vital Signs - First Documented 02/11/19 10:06 Temp 98.3 Pulse 83 B/P (MAP) 97/63 (74) Pulse Ox 95 O2 Delivery Room Air Capillary Refill : Less Than 3 Seconds Height, Weight, BMI Height: 5'5.00" Weight: 130lbs. 9.0oz. 58.400082ao; 22.6 BMI Method:Actual General Appearance: No Apparent Distress, WD/WN Eyes: Bilateral Eye Normal Inspection, Bilateral Eye PERRL, Bilateral Eye EOMI HEENT: PERRL/EOMI, TMs Normal, Pharynx Normal, Moist Mucous Membranes, Pale Conjunctivae (L) Neck: Full Range of Motion, Normal Inspection, Non Tender Respiratory: Chest Non Tender, Lungs Clear, Normal Breath Sounds Cardiovascular: Regular Rate, Rhythm Gastrointestinal: Normal Bowel Sounds, Non Tender Back: No CVA Tenderness, Decreased Range of Motion, Muscle Spasm (diffuse low back pain, tenderness.), Other Extremity: Normal Capillary Refill, Normal Inspection Neurologic/Psychiatric: Alert; No Motor Weakness, No Sensory Deficit; Other (Stephanie to person only) Skin: Normal Color Progress/Results/Core Measures Suspected Sepsis Recent Fever Within 48 Hours: No Infection Criteria Present: None New/Unexplained Altered Menta: No Sepsis Screen: No Definite Risk SIRS Temperature:98.3 Pulse: 83 Respiratory Rate: Laboratory Tests 02/11/19 12:12: Blood Pressure 97 /63 Mean: 74 Laboratory Tests 02/11/19 12:12: Results/Orders Lab Results Laboratory Tests Test 02/11/19 12:12 Range/Units My Orders Orders - ADITHYA HOWELL DO Cbc With Automated Diff (02/11/19 10:11) Comprehensive Metabolic Panel (02/11/19 10:11) Ua Culture If Indicated (02/11/19 10:11) Lumbar Spine 2 Or 3 View (02/11/19 10:11) Pelvis/[place] Hips 2 View (02/11/19 10:11) Chest 1 View Ap/Pa Only (02/11/19 10:11) Ekg Tracing (02/11/19 10:11) Vital Signs/I&O 02/11/19 10:06 Temp 98.3 Pulse 83 B/P (MAP) 97/63 (74) Pulse Ox 95 O2 Delivery Room Air Capillary Refill : Less Than 3 Seconds Blood Pressure Mean: 74 Departure Departure-Patient Inst. Referrals: PIPPA GUNN MD (PCP/Family) Primary Care Physician ADITHYA HOWELL DO Feb 11, 2019 12:28
[2019-02-11 12:42] LABS: ALANINE AMINOTRANSFERASE 14 U/L (0-55); ALBUMIN 3.9 GM/DL (3.2-4.5); ALKALINE PHOSPHATASE 79 U/L (40-136); BILIRUBIN,TOTAL 0.8 MG/DL (0.1-1.0); BUN/CREATININE RATIO 20; CALCIUM 9.4 MG/DL (8.5-10.1); CARBON DIOXIDE 27 MMOL/L (21-32); CHLORIDE 91 MMOL/L (98-107); CREATININE SERUM 0.59 MG/DL (0.60-1.30); GFR ESTIMATED > 60; GLUCOSE 104 MG/DL (70-105); POTASSIUM 4.4 MMOL/L (3.6-5.0); SODIUM 130 MMOL/L (135-145); TOTAL PROTEIN 6.2 GM/DL (6.4-8.2)
--- NOTE | 2019-02-11 12:56 | Diagnostic Imaging Report ---
CLINICAL HISTORY: Fall. Bilateral hip pain. COMPARISON: None TECHNIQUE: Six views of the pelvis and bilateral hips. FINDINGS: Postsurgical changes of right hip pinning and left total hip arthroplasty with cerclage wire placement are visualized. No periprosthetic fractures are visualized. The left acetabular and femoral components appear well-seated and demonstrate anatomic articulation. There is normal anatomic alignment of the right proximal femur. A minimally displaced fracture is seen involving the left superior pubic ramus extending into the pubic symphysis. Possible left inferior pubic ramus fracture. The SI joints demonstrate normal alignment. Soft tissues of the pelvis and hips are unremarkable. IMPRESSION: Acute fractures involving the superior and inferior left pubic rami with extension of the superior pubic ramus fracture into the pubic symphysis. No acute displaced fractures are seen in the bilateral hips. Report given to [facility] ER nurse (Prachi) at 12:52 p.m. 02/11/2019/alejandro Dictated by: Dictated on workstation # [id number]
[2019-02-11 14:07] LABS: CLARITY,URINE CLOUDY; COLOR,URINE YELLOW; GLUCOSE, URINE (UA) NEGATIVE (NEGATIVE); KETONES,URINE NEGATIVE (NEGATIVE); NITRITE,URINE POSITIVE (NEGATIVE); PH,URINE 8 (5-9); PROTEIN,URINE NEGATIVE (NEGATIVE)
[2019-02-11 14:08] LABS: BACTERIA,URINE LARGE /HPF; BILIRUBIN,URINE NEGATIVE (NEGATIVE); LEUKOCYTE ESTERASE ,URINE 2+ (NEGATIVE); UROBILINOGEN,URINE NORMAL (NORMAL); WBC,URINE 25-50 /HPF
--- OUTSIDE RECORDS SUMMARY | 2019-02-11 14:20 | XMS REPORT | Continuity of Care Document ---
Author Organization Unknown Address Unknown Allergies There is no data. Medications There is no data. Problems There is no data. Procedures There is no data. Results There is no data. Encounters ACCT No. Visit Date/Time Discharge Status Pt. Type Provider Facility Loc./Unit Complaint [id number] 12/23/2018 14:45:00 12/23/2018 23:59:59 CLS Outpatient SELF, NATALIA Mccauley [facility]ILLA [facility]
[2019-02-11] MEDS ORDERED: ONDANSETRON 4 MG/2 ML (SDV) Z0FRAN IV PRN (17:15)
[2019-02-11] MEDS ORDERED: CATHETER FLUSH 10 ML SYR IV PRN (17:15)
[2019-02-11] MEDS ORDERED: fentaNYL INJECTION 100 MCG/2 ML AMP IV PRN (17:15)
--- NOTE | 2019-02-11 18:02 | NUR ---
SHANON GRACE admitted to room 417-1, with an admitting diagnosis of pelvic fx post op fall , on 02/11/19 from [place] ED via stretcher, accompanied by staff and .SHANON GRACE introduced to surroundings, call light, bed controls, phone, TV, temperature control, lights, meal times, smoking policy, visitor policy, side rail policy, bathrooms and showers. Patient Rights given to patient in the handbook. SHANON GRACE verbalizes understanding that [facility] is not responsible for the loss or damage to any personal effects or valuables that are kept in the patients posession during their hospitalization. The following Patient Care Plans discharge were discussed with the patient . SHANON GRACE verbalizes understanding of Interdisciplinary Patient Education. Patient and family were informed about the Rapid Response Team and its purpose.
[2019-02-11] MEDS ORDERED: HALOPERIDOL 5 MG (HALDOL) TAB PO PRN (19:30)
[2019-02-11] MEDS ORDERED: HALOPERIDOL 5 MG/ML (HALDOL) AMP IM PRN (19:30)
[2019-02-11 20:14] VITALS: BP 126/78
[2019-02-11] MEDS ORDERED: CATHETER FLUSH 10 ML SYR IV SCH (22:00)
[2019-02-12 00:47] VITALS: BP 121/70
[2019-02-12 04:48] VITALS: BP 135/79
[2019-02-12 08:00] VITALS: BP 118/70
[2019-02-12] MEDS ORDERED: ACETAMINOPHEN 325 MG TABLET PO ONE (10:45)
[2019-02-12 11:50] VITALS: BP 104/67
--- NOTE | 2019-02-12 12:20 | History & Physical-Hospitalist ---
History of Present Illness HPI/Chief Complaint the patient is an 88-year-old white female with advanced Alzheimer's who is been cared for in the home by her . He found her 2 days ago on the floor but was tiled with her walker on top of her. He was able to help her to her feet but she has had significant amount of pain with weightbearing appears to be relatively comfortable at rest. He brought to the emergency room as it was difficult to get her to bear weight and the bathroom and back. It was noted that she had right-sided pelvic fracture. She has had past history of hip fractures requiring total hip replacement but there was no evidence for femur fracture and apparently has had a wrist fracture last year. These issues did lead to senior living short-term placement and then he was able to bring her back home again. He is in his upper 80s as well and unable to care for her at home. He reported that there had been no problems out of the ordinary prior to her fall. She is noncommunicative secondary to advanced Alzheimer's. His goal was to continue to care for her at home if possible but he has not have the resources for 24-hour in-home care. Date Seen 02/12/19 Time Seen by a Provider: 11:30 Attending Physician Bety Dick MD PCP Gregorio Fournier MD Referring Physician Date of Admission Feb 11, 2019 at 14:17 Home Medications & Allergies Home Medications Reviewed patient Home Medication Reconciliation performed by pharmacy medication reconciliations sound effects technician and/or nursing. Patients Allergies have been reviewed. Allergies Allergies Coded Allergies No Known Drug Allergies (Unverified11/10/17) Past Axbpcjd-Lcpnom-Lfjjso Hx Past Med/Social Hx: Reviewed Nursing Past Med/Soc Hx, Reviewed and Corrections made Patient Social History Alcohol Use: Denies Use Recreational Drug Use: No 2nd Hand Smoke Exposure: No Physical Abuse Screen: No Sexual Abuse: No Recent Foreign Travel: No Contact w/other who traveled: No Recent Hopitalizations: Yes (APPROX 2 MONTHS AGO) Recent Infectious Disease Expo: No Immunizations Up To Date Tetanus Booster (TDap): Unknown Seasonal Allergies Seasonal Allergies: No Past Medical History Surgeries: Joint Replacement, Orthopedic, Tonsillectomy Currently Using CPAP: No Currently Using BIPAP: No Neurological: Dementia Sexually Transmitted Disease: No HIV/AIDS: No Female Reproductive Disorders: Denies Musculoskeletal: Arthritis, Fractures History of Blood Disorders: No Family History Diabetes mellitus Review of Systems ROS-Unable to Obtain: advanced dementia precludes obtaining review of systems. Constitutional: no symptoms reported Physical Exam Physical Exam Vital Signs Vital Signs - First Documented 02/11/19 02/11/19 10:06 15:46 Temp 98.3 Pulse 83 Resp 16 B/P (MAP) 97/63 (74) Pulse Ox 95 O2 Delivery Room Air Capillary Refill : Less Than 3 Seconds Height, Weight, BMI Height: 5'5.00" Weight: 128lbs. 9.0oz. 58.769499wu; 21.6 BMI Method:Actual General Appearance: No Apparent Distress, Thin Neck: Normal Inspection Respiratory: Chest Non Tender, Lungs Clear, Normal Breath Sounds, No Accessory Muscle Use, No Respiratory Distress Cardiovascular: Regular Rate, Rhythm, No Gallop, Systolic Murmur (2-3/6 heard throughout the precordium) Gastrointestinal: Normal Bowel Sounds, No Organomegaly, No Pulsatile Mass, Non Tender, Soft Extremity: Normal Capillary Refill, Other (1+ bilateral edema to the mid tibia) Neurologic/Psychiatric: Disoriented Results Results/Procedures Labs Laboratory Tests 02/11/19 12:12 Patient resulted labs reviewed. Assessment/Plan Admission Diagnosis 1. Right inferior and superior pubic rami fractures with extension to the pubis symphysis. Discussed with the that I did not feel he was going to be able to handle her care needs and that senior living placement would be advisable. Unfortunately she does not meet inpatient admission criteria so she will not likely be a candidate for a fdc stay. Will initiate scheduled Tylenol with likely transfer on Thursday to medical [facility]. If they will take the weekend admission okay with discharge tomorrow. 2. Advanced Alzheimer's dementia. 3. Murmur of aortic stenosis conservative medical management considering number 2. Admission Status: Observation Clinical Quality Measures DVT/VTE Risk/Contraindication: Risk Factor Score Per Nursin RFS Level Per Nursing on Admit: 4+=Very High BETY DICK MD Feb 12, 2019 12:20
[2019-02-12] MEDS ORDERED: ACETAMINOPHEN 325 MG TABLET PO SCH (13:00)
[2019-02-12] MEDS ORDERED: ACET325T49 PO (14:06)
--- NOTE | 2019-02-12 15:45 | NUR ---
PT STILL VERY WEAK. HAVING DIFFICULT TIME TRANSFERRING PT TO BEDSIDE [facility]MODE. THIS RN STRONGLY SUGGESTED KEEPING PT IN HOSPITAL UNTIL THURSDAY FOR GROUP HOME PLACEMENT. REFUSES. NOTIFIED; RN EXPRESSES CONCERN ABOUT PT GOING HOME WITH . DISCHARGE STILL STANDS.
--- NOTE | 2019-02-13 14:41 | Discharge Summary ---
Diagnosis/Chief Complaint Date of Admission Feb 11, 2019 at 14:17 Date of Discharge Feb 12, 2019 at 15:45 Discharge Date: Feb 12, 2019 Admission Diagnosis 1. Right inferior and superior pubic rami fractures with extension to the pubis symphysis. Discussed with the that I did not feel he was going to be able to handle her care needs and that halfway placement would be advisable. Unfortunately she does not meet inpatient admission criteria so she will not likely be a candidate for a custodial stay. Will initiate sche duled Tylenol with likely transfer on Thursday to [facility] [place] [facility]. If they will take the weekend admission okay with discharge tomorrow. 2. Advanced Alzheimer's dementia. 3. Murmur of aortic stenosis conservative medical management considering number 2. Discharge Summary Discharge Physical Exam Allergies: Coded Allergies: No Known Drug Allergies (Unverified , 11/10/17) Vitals & I&Os Vital Signs Date Time Temp Pulse Resp B/P (MAP) Pulse Ox O2 Delivery O2 Flow Rate FiO2 02/12/19 11:50 99.3 97 18 104/67 (79) 96 Room Air General Appearance: No Apparent Distress (when non-weight bearing) Respiratory: Lungs Clear, No Accessory Muscle Use, No Respiratory Distress Cardiovascular: Regular Rate, Rhythm, Systolic Murmur Extremity: No Pedal Edema Hospital Course Was the Problem List Reviewed?: Yes patient was admitted for ongoing evaluation of a right pelvic fracture involving the pubis symphysis and both pubic rami likely pathologic due to underlying osteoporosis. The patient has advanced Alzheimer's dementia and is being cared for in the home by her . She required several short-term halfway admissions for hip replacement due to fractures in the recent past and I stro ngly recommended they go this route again. The patient's was adamant about taking her home was well kempt alert oriented and judged to be of sound mind although I strongly question his judgment and implored him to consider custodial services. He was adamant however about discharging his the evening of her admission. Advised scheduled Tylenol and addition to when necessary ibuprofen and he can always call the halfway for a direct admission from home through his primary care provider Dr. Fournier. Labs (last 24 hrs) Microbiology 02/11/19 Urine Culture - Preliminary, Resulted Gram Negative Ray Patient resulted labs reviewed. Discussion & Recommendations Discharge Planning: <30 minutes discharge planning Discharge Home Medications: Active Scripts Active Acetaminophen 325 Mg Tablet 650 Mg PO TID 30 Days Ibuprofen 400 Mg Tablet 400 Mg PO Q8H PRN Instructions to patient/family Please see electronic discharge instructions given to patient. Clinical Quality Measures DVT/VTE Risk/Contraindication: Risk Factor Score Per Nursin RFS Level Per Nursing on Admit: 4+=Very High Copy Copies To 1: PIPPA FOURNIER MD, MARK D MD Feb 13, 2019 14:41
== END 2019-02-12 14:06 | disposition home or self-care (01) ==
LOC: EDUNIT# 10:04 → ER FS 10:05 → UNDOADMOB 14:17 → 4TH 14:17 → UNDODISOB 02-12 15:45
PROVIDERS: ADMIT Internal Medicine; ATTEND Internal Medicine
DX: S32.511A Fracture of superior rim of right pubis, initial encounter for closed fracture (principal); M19.90 Unspecified osteoarthritis, unspecified site; G30.9 Alzheimer's disease, unspecified; F02.80 Dementia in other diseases classified elsewhere, unspecified severity, without behavioral disturbance, psychotic disturbance, mood disturbance, and anxiety; I35.0 Nonrheumatic aortic (valve) stenosis; R41.82 Altered mental status, unspecified; W01.0XXA Fall on same level from slipping, tripping and stumbling without subsequent striking against object, initial encounter; Z79.899 Other long term (current) drug therapy
CPT/HCPCS: 36415; 51702; 71045; 72100; 73521; 80053; 81000; 85025; 87077; 87088; 87186; 93005; G0378

== ENCOUNTER 2019-05-12 11:10 | Emergency (ER) | payer MEDICARE ==
[~2019-05-12 11:10] MED LIST changes: +ACET325T49 PO
--- NOTE | 2019-05-12 11:49 | NUR ---
Called [facility] at [phone] to inform that patient is here in ED. States they will have a nurse call here for more information.
--- NOTE | 2019-05-12 11:49 | ED General ---
General Chief Complaint: Neurological Problems Stated Complaint: SEIZURE History of Present Illness Date Seen by Provider: May 12, 2019 Time Seen by Provider: 11:43 Initial Comments 89-year-old female with advanced dementia, lives at home taken care of by her reports that she had about the fourth or fifth episode today, where she seemed to be asleep and he could not arouse her This continued to where he felt uncomfortable with it he tried to get ahold of the hospice personnel but was unable to, and therefore called 911 He says that she was sort of half awake at the time the paramedics arrived and now here on arrival in the ER is back to her fully awake normal baseline said the last time this happened he was told that was a seizure, which is why the chief complaint of seizure appears on the chart there was never any witnessed motor seizure activity, there was never a postictal period The patient is alert but seems to have pretty severe dementia, it's difficult to carry on any kind of meaningful conversation with her Patient has hypothyroidism, she did suffer falls, a few months ago with pelvic fracture and prior to that hip fracture Allergies and Home Medications Allergies Coded Allergies: No Known Drug Allergies (Unverified , 11/10/17) Home Medications Acetaminophen 325 Mg Tablet, 650 MG PO TID Prescribed by: BETY DICK on 02/12/19 1406 Ibuprofen 400 Mg Tablet, 400 MG PO Q8H PRN for PAIN Prescribed by: ZHEN MALDONADO on 12/25/17 1634 Patient Home Medication List Home Medication List Reviewed: Yes Review of Systems Review of Systems Constitutional: No fever EENTM: no symptoms reported Respiratory: no symptoms reported Cardiovascular: no symptoms reported Gastrointestinal: No abdominal pain, No diarrhea, No vomiting Genitourinary: no symptoms reported Musculoskeletal: no symptoms reported Skin: no symptoms reported Psychiatric/Neurological: Denies Headache, Denies Seizure Past Fsnegdq-Dijwcg-Urblsg Hx Patient Social History 2nd Hand Smoke Exposure: No Recent Foreign Travel: Yes Recent Hopitalizations: Yes (APPROX 2 MONTHS AGO) Immunizations Up To Date Tetanus Booster (TDap): Unknown Seasonal Allergies Seasonal Allergies: No Past Medical History Surgeries: Yes (bilat HIP, RIGHT WRIST) Joint Replacement, Orthopedic, Tonsillectomy Respiratory: No Currently Using CPAP: No Currently Using BIPAP: No Cardiac: No Neurological: Yes Dementia Female Reproductive Disorders: Denies Sexually Transmitted Disease: No HIV/AIDS: No Genitourinary: No Gastrointestinal: No Musculoskeletal: Yes (POSSIBLE ARTHRITIS) Arthritis, Fractures Endocrine: No HEENT: No Cancer: No Psychosocial: No Integumentary: No Blood Disorders: No Family Medical History Diabetes mellitus Physical Exam Vital Signs Vital Signs - First Documented 05/12/19 11:56 Temp 35.7 Pulse 98 Resp 18 B/P (MAP) 95/58 (70) Pulse Ox 96 Capillary Refill : Height, Weight, BMI Height: 5'5.00" Weight: 128lbs. 9.0oz. 58.947570ld; 21.6 BMI Method:Actual General Appearance: No Apparent Distress Eyes: Bilateral Eye PERRL, Bilateral Eye EOMI HEENT: Moist Mucous Membranes, Other (contusion left forehead) Neck: Non Tender Respiratory: Lungs Clear Cardiovascular: Regular Rate, Rhythm, Systolic Murmur Gastrointestinal: Normal Bowel Sounds, Non Tender, Soft Extremity: Normal Inspection, Non Tender Neurologic/Psychiatric: Alert, No Motor/Sensory Deficits, family service aide II-XII Norm as Tested Progress/Results/Core Measures Suspected Sepsis SIRS Temperature: Pulse: Respiratory Rate: Laboratory Tests 05/12/19 12:40: White Blood Count 7.4 Blood Pressure / Mean: Laboratory Tests 05/12/19 12:40: Creatinine 0.61, Platelet Count 304 Results/Orders Lab Results Laboratory Tests Test 05/12/19 12:40 Range/Units White Blood Count 7.4 4.3-11.0 10^3/uL Red Blood Count 3.40 L 4.35-5.85 10^6/uL Hemoglobin 12.3 11.5-16.0 G/DL Hematocrit 36 35-52 % Mean Corpuscular Volume 106 H 80-99 FL Mean Corpuscular Hemoglobin 36 H 25-34 PG Mean Corpuscular Hemoglobin Concent 34 32-36 G/DL Red Cell Distribution Width 15.8 H 10.0-14.5 % Platelet Count 304 130-400 10^3/uL Mean Platelet Volume 9.5 7.4-10.4 FL Neutrophils (%) (Auto) 85 H 42-75 % Lymphocytes (%) (Auto) 7 L 12-44 % Monocytes (%) (Auto) 8 0-12 % Eosinophils (%) (Auto) 0 0-10 % Basophils (%) (Auto) 0 0-10 % Neutrophils # (Auto) 6.3 1.8-7.8 X 10^3 Lymphocytes # (Auto) 0.5 L 1.0-4.0 X 10^3 Monocytes # (Auto) 0.6 0.0-1.0 X 10^3 Eosinophils # (Auto) 0.0 0.0-0.3 10^3/uL Basophils # (Auto) 0.0 0.0-0.1 10^3/uL Neutrophils % (Manual) 74 % Lymphocytes % (Manual) 8 % Monocytes % (Manual) 4 % Eosinophils % (Manual) 0 % Basophils % (Manual) 0 % Band Neutrophils 14 % Sodium Level 133 L 135-145 MMOL/L Potassium Level 3.9 3.6-5.0 MMOL/L Chloride Level 93 L 98-107 MMOL/L Carbon Dioxide Level 30 21-32 MMOL/L Anion Gap 10 5-14 MMOL/L Blood Urea Nitrogen 10 7-18 MG/DL Creatinine 0.61 0.60-1.30 MG/DL Estimat Glomerular Filtration Rate > 60 BUN/Creatinine Ratio 16 Glucose Level 93 70-105 MG/DL Calcium Level 9.2 8.5-10.1 MG/DL My Orders Orders - TAWNY AVILES MD Thyroid Stimulating Hormone (05/12/19 11:49) Cbc With Automated Diff (05/12/19 11:49) Basic Metabolic Panel (05/12/19 11:49) Monitor-Rhythm Ecg Trace Only (05/12/19 11:49) Ct Head Wo (05/12/19 11:51) Manual Differential (05/12/19 12:40) Vital Signs/I&O 05/12/19 11:56 Temp 35.7 Pulse 98 Resp 18 B/P (MAP) 95/58 (70) Pulse Ox 96 Capillary Refill : Progress Note : Progress Note CT head shows atrophy, no acute process CBC BMP unremarkable classroom monitor shows only sinus rhythm spoke with hospice personnel Departure Impression Primary Impression: Dementia Qualified Codes: G30.9 - Alzheimer's disease, unspecified; F02.80 - Dementia in other diseases classified elsewhere without behavioral disturbance Disposition: 01 HOME, SELF-CARE Condition: Stable Departure-Patient Inst. Decision time for Depature: 13:41 Referrals: PIPPA GUNN MD (PCP/Family) Primary Care Physician Patient Instructions: Dementia (DC) TAWNY AVILES MD May 12, 2019 11:48
--- NOTE | 2019-05-12 12:11 | NUR ---
Edvin from [facility] here to talk to family.
--- NOTE | 2019-05-12 12:45 | Diagnostic Imaging Report ---
PROCEDURE: CT head without contrast. TECHNIQUE: Multiple contiguous axial images were obtained through the brain without the use of intravenous contrast. Auto Exposure Controls were utilized during the CT exam to meet ALARA standards for radiation dose reduction. INDICATION: Fall and dementia with bruise on the left side of the head. COMPARISON: No prior studies are available for comparison. FINDINGS: Ventricles and sulci are prominent consistent with age-related atrophy. Significant periventricular hypodensity is noted consistent with senescent change. No sulcal effacement or midline shift is identified. No acute intra-axial or extra-axial hemorrhage is detected. Cisterns are patent. Visualized paranasal sinuses are clear. IMPRESSION: Age-related atrophy and senescent changes. No acute intracranial process is identified. Dictated by: Dictated on workstation # [id number]
[2019-05-12 12:54] LABS: HEMATOCRIT 36 % (35-52); HEMOGLOBIN 12.3 G/DL (11.5-16.0); MEAN CORPUSCULAR HEMOGLOBIN 36 PG (25-34); MEAN CORPUSCULAR VOLUME 106 FL (80-99); WHITE BLOOD COUNT 7.4 10^3/uL (4.3-11.0)
[2019-05-12 12:55] LABS: BASOPHILS % (AUTO) 0 % (0-10); EOSINOPHILS % (AUTO) 0 % (0-10); LYMPHOCYTES # (AUTO) 0.5 X 10^3 (1.0-4.0); LYMPHOCYTES % (AUTO) 7 % (12-44); MEAN CORPUSCULAR HGB CONC 34 G/DL (32-36); MEAN PLATELET VOLUME 9.5 FL (7.4-10.4); MONOCYTES # (AUTO) 0.6 X 10^3 (0.0-1.0); MONOCYTES % (AUTO) 8 % (0-12); NEUTROPHILS # (AUTO) 6.3 X 10^3 (1.8-7.8); NEUTROPHILS % (AUTO) 85 % (42-75); PLATELET COUNT 304 10^3/uL (130-400); RED CELL DISTRIBUTION WIDTH 15.8 % (10.0-14.5)
[2019-05-12 13:13] LABS: BUN/CREATININE RATIO 16; CARBON DIOXIDE 30 MMOL/L (21-32); CHLORIDE 93 MMOL/L (98-107); CREATININE SERUM 0.61 MG/DL (0.60-1.30); GFR ESTIMATED > 60; POTASSIUM 3.9 MMOL/L (3.6-5.0); SODIUM 133 MMOL/L (135-145)
[2019-05-12 13:14] LABS: CALCIUM 9.2 MG/DL (8.5-10.1); GLUCOSE 93 MG/DL (70-105)
[2019-05-12 13:21] LABS: BAND NEUTROPHILS 14 %; BASOPHILS % (MANUAL) 0 %; EOSINOPHILS % (MANUAL) 0 %; LYMPHOCYTES % (MANUAL) 8 %; MONOCYTES % (MANUAL) 4 %; NEUTROPHILS % (MANUAL) 74 %
[2019-05-12 13:45] VITALS: BP 113/68
== END 2019-05-12 14:01 | disposition home or self-care (01) ==
LOC: EDUNIT# 11:10 → ER FS 11:11
DX: F03.90 Unspecified dementia, unspecified severity, without behavioral disturbance, psychotic disturbance, mood disturbance, and anxiety (principal); Z90.89 Acquired absence of other organs
CPT/HCPCS: 36415; 70450; 80048; 84443; 85007; 85027; 93041